=== PATIENT | female | born 1995 | race Caucasian/White ===

== ENCOUNTER 2024-03-28 11:54 | Inpatient (IN) | payer MEDICAID, SELFPAY ==
[2024-03-28] VITALS (18 sets, daily range): BP systolic 91–155; BP diastolic 56–78; PULSE 60–106; RESP 14–18; TEMP 36.4–36.6; O2SAT 96–100; BMI 24.6
--- NOTE | 2024-03-28 | DI.CT_ITS ---
Exam(s) CT CHEST PE ABD PELVIS W EXAM: CT CHEST PE ABD PELVIS W CLINICAL HISTORY: r/o PE, R/O bleed. TECHNIQUE: Imaging Protocol: Axial CT angiography was performed with multi-slice acquisition and m ulti-planar and/or 3D reconstructions. CONTRAST MATERIAL: Intravenous: Omnipaque 350 Contrast volume:100 ml Oral: None COMPARISON: No exams were available for comparison FINDINGS: CHEST: PULMONARY ARTERIES: There are no intra-arterial filling defects to suggest the presence of acute pulm onary emboli. LUNGS: There is no evidence of pulmonary infarction.No infiltrates. There are no pleural effusions.N o nodules in the lung [place]. MEDIASTINUM: There is no hilar nor mediastinal adenopathy. Visualized thyroid unremarkable. CARDIAC: Heart size is normal. There is no pericardial effusion. There is no significant shift of t he interventricular septum.Caliber of the thoracic aorta is within normal limits. No dissection. OSSEOUS: No significant osseous lesions.No fractures. ABDOMEN: There is free intraperitoneal air and there is ascites/hemoperitoneum LIVER: There are no focal hepatic lesions nor dilatation of intrahepatic ducts. No liver laceration evident. GALLBLADDER/BILIARY: No obvious gallbladder pathology. CBD is not dilated. PANCREAS: No evidence of pancreatic mass nor dilatation of the pancreatic duct. SPLEEN: Spleen is not enlarged. There are no intrasplenic lesions. No splenic laceration. Splenic a nd portal veins are patent. ADRENALS: There are no significant adrenal masses. KIDNEYS:Unremarkable. No renal lacerations. No calculi nor hydronephrosis. No solid renal masses. ABDOMINAL AORTA: Unremarkable LYMPH NODES: There is no retroperitoneal or para-aortic adenopathy. ABDOMINAL WALL/GI: No evidence of significant anterior abdominal wall hernia. No bowel obstruction. PELVIS: There is air-gas in the anterior subcutaneous tissues as well as hematoma in the anterior subcutaneou s tissues and there is also air-gas within the pelvis. There is also gas within the intramuscular ti ssues of the mid-lower abdomen. REPRODUCTIVE: Uterus is enlarged, most probably post . There is fluid and air within the endometrial cavity of the uterus. There are uterine wall defects w ith active extravasation. There appears to be discontinuity of the posterior uterine wall near the l evel the fundus also discontinuity in the anterior lower uterine segment which is presumably C-sectio n site. There is a large intrapelvic hematoma posterior to the uterus measuring approximately 20 cm craniocaudal length by 9 cm with by 5 cm. LYMPH NODES: There is no intrapelvic nor inguinal adenopathy. GI: No evidence of appendicitis.No evidence of sigmoid diverticulitis. URINARY BLADDER: Air in fluid is seen within the perivesicular space. There is a Jim catheter in t he urinary bladder. Bladder is collapsed. OSSEOUS: No significant osseous lesions. IMPRESSION: 1. Uterine rupture with large intrapelvic blood-hematoma and free intraperitoneal air. There are dis continuity in the uterus in the posterior aspect of the fundus and lower anterior segment. There is fluid and gas within the endometrial cavity 2. There is also hematoma within the anterior abdominal wall-pelvic musculature as well as abundantga s within the subcutaneous and intramuscular tissues of the mid-lower abdomen-pelvis. 3. There is ascites/hemoperitoneum 4. No acute intrathoracic findings. First read by [facility]. RADIATION DOSE DELIVERED: 298.26mGy.cm Total DLP DATA REPOSITORY: All CT scans at this facility are submitted to the National Radiology Data Registry (NRDR) Dose Index Registry (DIR) with the [employer] (A[employer]). RADIATION OPTIMIZATION: All CT scans at this facility use at least one of these dose optimization te chniques: automated exposure control; mA and/or kV adjustment per patient size (includes targeted exa ms where dose is matched to clinical indication); or iterative reconstruction.
[2024-03-28 12:45] LABS: HCT 37.3 % (36.0-46.0); MCH 29.7 pg (27.0-33.0); MCHC 32.2 % (32.0-36.0); MCV 92 fL (80-95); MPV 10.4 fL (8.0-11.0); Platelet Count 292 10^3/uL (130-400); RBC 4.04 10^6/uL (3.93-5.22); RDW 13.8 % (11.7-14.6); RDW-SD 46.7 fL; WBC 11.43 10^3/uL (4.4-10.8)
--- NOTE | 2024-03-28 13:01 | W.ANESVAS ---
Midline Placement Date Performed: 03/28/24 Procedure Time: 12:42 Requesting Provider: Selena Garg Procedure Location: Obstetrics Sedation Given (Indicate Dose Given): No Sedation given Patient Mental Status: Awake Sterility: Hand Hygiene, Surgical Cap, Surgical Mask, Sterile Gloves, Sterile Drape/Sheet and Chlorhexidine Laterality: Right Insertion Site: Basilic Midline Device: PowerGlide Pro 18G Catheter Length: 10 cm Midline Procedure Procedure: 1% Lidocaine to skin and subcutaneous tissue with 25g needle and Vessel accessed with needle Dressing: Tegaderm Applied Blood Return: Present Flushes: Easily Ultrasound: Sterile probe cover and gel used Ultrasound Image Saved?: Yes Number of Attempts (See previous attempts in note section): 1 Procedure Tolerated: No Complications Procedure Outcome: Successful Performed By: Poncho Sanchez
--- NOTE | 2024-03-28 13:02 | ANES.PREOP_ITS ---
General Info Date of Service Date Performed: 03/28/24 Height: 5 ft 5 in Weight: 67.132 kg Body Mass Index (BMI): 24.6 Surgical Procedure: Operation Date: 03/28/24 13:10 Proposed Procedure Side Surgeon p Section Selena Garg MD Meds Allergies and Home Medications Current Visit Medications: Current Medications Generic Name Dose Route Start Last Admin Trade Name Freq PRN Reason Stop Dose Admin Citric Acid/Sodium Citrate 30 ml 03/28/24 13:00 Sodium Citrate 30 Ml Cup PO PREOP REKHA Cefazolin Sodium/Dextrose 2 gm in 50 mls @ 100 mls/hr 03/28/24 13:00 Ancef Duplex IVPB PREOP REKHA Azithromycin 500 mg/ Sodium 250 mls @ 250 mls/hr 03/28/24 13:00 Chloride IVPB PREOP REKHA Ringer's Solution 1,000 mls @ 200 mls/hr 03/28/24 13:00 IV INFUSION REKHA IV Miscellaneous Supplies 1 each 03/28/24 12:15 Iv Access IV DIRECTED REKHA IV Miscellaneous Supplies 1 each 03/28/24 13:00 Iv Access IV DIRECTED REKHA Sodium Chloride 0 ml 03/28/24 12:02 Normal Saline Flush 10 Ml Syr IVP PRN PRN Sodium Chloride 0 ml 03/28/24 20:00 Normal Saline Flush 10 Ml Syr IVP BID REKHA Sodium Chloride 0 ml 03/28/24 12:02 Normal Saline 10 Ml Vial IJ DIRECTED PRN Sodium Chloride 0 ml 03/28/24 12:56 Normal Saline Flush 10 Ml Syr IVP PRN PRN Sodium Chloride 0 ml 03/28/24 20:00 Normal Saline Flush 10 Ml Syr IVP BID REKHA Sodium Chloride 0 ml 03/28/24 12:56 Normal Saline 10 Ml Vial IJ DIRECTED PRN PFSH Prental History History 2 2 Para 0 Hx # Term Pregnancies Multiple births Hx # Pregnancies Ectopic pregnancies AB induced Hx Number of Living Children AB spontaneous Vital Signs and Lab Results Vital Signs Most Recent Vital Signs in EMR: Most Recent Vital Signs Temp Pulse Resp BP Pulse Ox 36.6 C 68 18 155/70 H 96 03/28/24 12:34 03/28/24 12:34 03/28/24 12:34 03/28/24 12:34 03/28/24 12:34 Lab Results 03/28/24 12:25 03/28/24 12:25 Blood Type / Crossmatch: 2 Antibody Screen Pending 03/28/24 Complete Blood Count: 2 White Blood Count 11.43 10^3/uL (4.4-10.8) H 03/28/24 12:25 Red Blood Count 4.04 10^6/uL (3.93-5.22) 03/28/24 12:25 Hemoglobin 12.0 g/dL (11.2-15.7) 03/28/24 12:25 Hematocrit 37.3 % (36.0-46.0) 03/28/24 12:25 Platelet Count 292 10^3/uL (130-400) 03/28/24 12:25 Complete Metabolic Panel: 2 Sodium Pending 03/28/24 12:25 Potassium Pending 03/28/24 12:25 Chloride Pending 03/28/24 12:25 Carbon Dioxide Pending 03/28/24 12:25 BUN Pending 03/28/24 12:25 Creatinine Pending 03/28/24 12:25 Est GFR (CKD-EPI 2020) Pending 03/28/24 12:25 Calcium Pending 03/28/24 12:25 Albumin Pending 03/28/24 12:25 Glucose Pending 03/28/24 12:25 Liver Function Panel: 2 Alanine Aminotransferase (ALT/SGPT) Pending 03/28/24 12: 25 Aspartate Amino Transf (AST/SGOT) Pending 03/28/24 12:25 Coagulation Panel: 2 No Data to Display Cardiac Panel: 2 No Data to Display Arterial Blood Gas: 2 No Data to Display Venous Blood Gas: 2 No Data to Display Pancreas Panel: 2 No Data to Display Thyroid Panel: 2 No Data to Display Infectious Disease: 2 HIV (1&2) Ag and Ab, 4th Generation Pending 03/28/24 23: 59 Hepatitis B Surface Antigen Pending 03/28/24 12:25 Hepatitis C Antibody Pending 03/28/24 23:59 Blood Cultures: 2 No Data to Display Toxicology Panel: 2 No Data to Display Panel: 2 No Data to Display Anesthesia Assessment and Plan Anesthesia History Personal History: Unknown Anesthesia History Family History: Family History Unknown Exercise Tolerance Exercise Tolerance: Metabolic Equivalents>4 Pertinent Negatives Pertinent Negatives: No Symptoms of GERD Cardiac & Pulmonary Exam Cardiac Exam: Normal S1/S2 Heart Sounds Pulmonary Exam: Clear Bilateral Breath Sounds Implantable Cardiac Device Does patient have a Pacemaker or an ICD?: No Airway Exam Known Difficult Airway: No Mallampati Class: 1 Mouth Opening: Normal (> 3cm) Thyromental Distance: Greater than 3 cm Neck Range of Motion: Full ROM Neck Circumference: Normal Teeth Condition: Generalized Poor Dentition ASA Classification ASA Score: ASA 3 Emergency Case?: Yes NPO Status NPO Status: Unable to Assess Status Status: Confirmed (36-37 weeks estimated) Anesthesia Plan Resuscitation Status: Full Code Anesthesia Technique: Spinal Anesthesia Airway Planned: Natural Airway Monitors Used: Standard Monitors
[2024-03-28] MEDS: AZITHROMYCIN 500 MG in Normal Saline 250 ML 250 MG IVPB (13:05)
[2024-03-28 13:14] LABS: ROM Plus Negative
[2024-03-28] MEDS: Lactated Ringers 1,000 ML 200 ML IV (13:15)
[2024-03-28] MEDS: ceFAZolin 2 GM/50 ML BAG IVPB (13:30)
--- NOTE | 2024-03-28 13:45 | PLAC_PTH ---
PATIENT: Claudette Gamboa LOC: OBS U#:[id number] AGE/SX: 28/F ROOM: OBS.304 RE03/28/[address]: Selena Garg MD : 1995 BED: A DIS: 04/01/2024 SPEC #: [id number] RECD: 03/28/24 18:35 STATUS: JACQUI REQ #: [id number] DAISHA: 03/28/24 13:[address]: Selena Garg DEPT: Surgical Specimen RECD BY: Emily Solano ENTERED: 03/28/24 18:36 SP TYPE: PLAC OTHR DR: Unknown,Unknown Tissues: 1 - PLACENTA (3RD TRIMESTER) Procedures: GROSS AND MICRO LEVEL 5 Comments: [id number]
[2024-03-28 13:48] LABS: ALT 30 U/L (14-59); AST 36 U/L (15-37); Albumin 2.5 g/dL (3.4-5.0); Alkaline Phosphatase 267 U/L (46-116); Anion Gap 11.7 mmol/L (3-11); BUN 10 mg/dL (7-18); Bilirubin, Total 0.53 mg/dL (0.2-1.0); CO2 21.3 mmol/L (21.0-32.0); CREATININE 0.6 mg/dL (0.55-1.02); Calcium 9.3 mg/dL (8.5-10.1); Chloride 103 mmol/L (98-107); Estimated GFR 126.09 (mL/min/1.73m2); Glucose 83 mg/dL (74-106); Potassium 3.7 mmol/L (3.5-5.1); Sodium 136 mmol/L (136-145); Total Protein 7.2 g/dL (6.4-8.2)
--- NOTE | 2024-03-28 13:58 | W.ANESVAS ---
Midline Placement Date Performed: 03/28/24 Procedure Time: 13:30 Requesting Provider: Poncho Sanchez Procedure Location: Operating Room Sedation Given (Indicate Dose Given): No Sedation given Patient Mental Status: Awake Sterility: Hand Hygiene, Surgical Cap, Surgical Mask, Sterile Gloves and Chlorhexidine Laterality: Left Insertion Site: Brachial Midline Device: PowerGlide Pro 18G Catheter Length: 10 cm Midline Procedure Procedure: Catheter placed without resistance Dressing: Tegaderm Applied and Statlock Applied Blood Return: Present Flushes: Easily Ultrasound: Sterile probe cover and gel used (urgent placement. ) Ultrasound Image Saved?: No Number of Attempts (See previous attempts in note section): 1 Procedure Tolerated: No Complications Procedure Outcome: Successful Procedure Comment:: On placement of the spinal for section, pt complaining of right arm midline site discomfort. Site inspected, noted to be swollen, no blood return as previous. line considered to be infiltrated/leaking, new line placed in the left arm. Performed By: Poncho Sanchez
[2024-03-28] MEDS: Bupivacaine 0.25% Pres-Free 30 ML VIAL (14:17)
--- NOTE | 2024-03-28 14:34 | ROE_ITS ---
Date of service: 03/28/24 Time of Service: 13:30 Operative Note Operative Note PRE-OP DIAGNOSIS: 37wk IUP, Breech presentation POST-OP DIAGNOSIS: same (thick meconium) SURGEON: Selena Garg ASSISTING SURGEON: Teetee Antunez Refer to Anesthesia Record ESTIMATED BLOOD LOSS: 600 COMPLICATIONS: None Patient was transported to: floor Patient's condition: stable Indications: 37.2wks IUP, breech presentation, active labor Minimal care, substance abuse Findings: Male infant, apgars 8/9 Normal appearing uterus, ovaries and tubes. Procedure Description: After informed consent was signed the patient was taken to the operating room. She was given spinal anesthesia, SCDs were placed on her legs and a gastelum catheter was introduced into her bladder. The heart rate was checked and was in the 90s. She underwent abdomina prep and was draped in the dorsal supine position with a leftward tilt. The patient was tested and spinal anesthesia was found to be adequate. A time out was performed. The skin was injected with bupivocaine along the length of the planned incision. A skin incision was made with the scalpel and carried down to the underlying layer of fascia with blunt dissection. The fascia was incised on either side of the midline and the fascial incision extended laterally with a combination of sharp and blunt dissection. The inferior edge of the fascia was grasped with ridge clamps and tented up and dissected down with a combination of sharp and blunt dissection. Then the superior edge of the fascial incision was grasped with ridge clamps and tented up and dissected down with a combination of sharp and blunt dissection. The rectus muscles were in the midline and the peritoneum was entered bluntly. The peritoneal incision was extended laterally with blunt dissection. The bladder blade was inserted. A transverse incision was made in the lower uterine segment with the scalpel. The incision was extended superiorly and inferiorly with blunt pressure. Think meconium was noted. The breech was brought out of the pelvis and delivered through the incision followed by the body and legs. The arms were internally rotated and delivered followed by the head in a flexed position. The cord was milked toward the baby and clamped x2 and cut. The baby was handed to the performance consultant. Cord blood was collected. A segment of cord was set aside for cord gasses. The placenta delivered with fundal massage and gentle cord traction and appeared to be intact. The uterus was exteriorized and cleared of clots and debris. The uterine incision had bilateral extensions down toward the cervix that were hemostatic. It was closed with 0-vicryl in a running locked fashion with a second layer of suture imbricating the first. Good hemostasis was noted. The uterus was placed back into the abdominal cavity. Clots were cleared from the peritoneal cavity with lap sponges. The incision was inspected once again and good hemostasis was noted. There was good hemostasis of the rectus muscles. The fascia was closed with 0- vicryl in a running unlocked fashion. The subcuticular layer was irrigated. The skin was closed with 4-0 vicryl in a running subcuticular fashion. The incision was cleaned. Mastisol and steristrips were placed. A Mepilex dressing was placed. The fundus was palpated to be firm. The patient was moved to the stretcher and taken to the recovery room in stable condition.
--- NOTE | 2024-03-28 14:55 | W.ANESPOSTOP ---
Postoperative Evaluation Date, Time and Location Date Performed: 03/28/24 Time Performed: 14:55 Patient Location: Day Surgery Unit Vital Signs Most Recent Imported Vital Signs: Most Recent Vital Signs Temp Pulse Resp BP Pulse Ox 36.6 C 68 18 155/70 H 96 03/28/24 12:34 03/28/24 12:34 03/28/24 12:34 03/28/24 12:34 03/28/24 12:34 Pain Score Most Recent Pain Score: Most Recent Pain Score Pain Level 10 03/28/24 12:34 Assessment Mental Status: Awake (Alert & Oriented to Patient Baseline) Airway and Respiratory Function: Patent airway with normal (patient baseline) respiratory exam Cardiovascular Function: Hemodynamically Stable Hydration Status: Adequately Hydrated Nausea & Vomiting: No Nausea or Vomiting Pain: Pain is tolerable per patient Peripheral Nerve Block: Patient did not receive a nerve block
[2024-03-28] MEDS: Oxytocin/Normal Saline 30 UNIT/500 ML BAG 95 UNITS IV (15:00)
[2024-03-28] MEDS: oxyCODONE 5 mg/Acetaminophen 325 mg TAB PO ×2 (16:45→18:20)
[2024-03-28] MEDS: Lactated Ringers 1,000 ML 120 ML IV (17:40)
--- NOTE | 2024-03-28 18:41 | W.PM.OBHPL1 ---
Date of service: 03/28/24 Time of Service: 12:30 Assessment and Plan Assessment and plan (1) Breech presentation: Status: Acute Assessment and plan: Pt is a P0 @37.2wks by 3T sono in active labor with breech presentation. She consented to proceed with a CS. The appropriate teams were alerted. She will received spinal analgesia and then repeat vaginal exam to check for potential imminent breech delivery. OB-HPI Labor/Delivery History of Present Illness Reason for Visit: Labor Chief Complaint: Uterine Contractions. Comments: Pt arrived to the Center without any prior care here and very minimal care at all. She had been seen for a visit at [facility] several weeks ago with a sono that measured 34.5wks making her 37.2wks based on that. 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 Pt denies other health concerns. She was in significant pain and kit every few minutes on arrival. No bleeding or loss of fluid. PFSH All Active Problems (Updated 03/28/24 @ 19:12 by Selena Garg MD) Breech presentation (Acute) Problem related to housing and economic circumstances (Acute) Drug use complicating puerperium (Acute) Other specified counseling (Acute) Social History Smoking risk assessment performed?: No History History 2 Para 0 Hx # Term Pregnancies Multiple births Hx # Pregnancies Ectopic pregnancies AB induced Hx Number of Living Children AB spontaneous Exam Physical Exam Vital signs: Temp Pulse Resp BP Pulse Ox 97.5 F L 63 14 104/68 100 03/28/24 17:00 03/28/24 17:00 03/28/24 17:00 03/28/24 17:00 03/28/24 17:00 Vital Signs Reviewed: Yes Detailed Labor and Delivery Exam [place] Score: Cervical Points Exam 0 1 2 3 Dilation Closed 1-2cm 3-4 cm 5-6cm Effacement 0-30% 40-50% 60-70% 80% Consistency Firm Medium Soft Station -3 -2 -1,0 +1,+2 Position Posterior Mid Anterior Comments: Difficult to get an accurate cervical exam due to pt's intolerance of the exam. The presenting part was felt to be low in the pelvis at +1 station. Fetus A Heart Rate Baseline: 140 Monitor Accelerations: 15 X 15 Monitor Decelerations: None Variability: Moderate (6-25 BPM) Date of Membrane Rupture: 03/28/24 Time of Membrane Rupture: 13:40 Results Results Group Beta Strep: Done-Result Unknown Abnormal Lab Findings: Abnormal Labs 03/28/24 12:25 WBC 11.43 H Anion Gap 11.7 H Alkaline Phosphatase 267 H Albumin 2.5 L Risk Assessment Risks Reviewed Risks Reviewed Upon Admission: Yes (Minimal care, substance abuse) WW Pocus Exam Exam testing Date/Time of Exam: Date of exam: 03/28/2024 Time of exam: 7:11 pm position Gestational age (weeks): 37 Presentation: Rafa Breech Coding for Transabdominal exam: Complete exam
[2024-03-28 18:56] LABS: Bilirubin Small (Negative); Blood Small (Negative); Clarity Clear (Clear); Glucose Negative (Negative); Ketones >=160 mg/dL (Negative); Leukocyte Esterase Negative (Negative); Nitrite Positive (Negative); Specific Gravity >= 1.030 (1.005-1.025)
[2024-03-28 19:17] LABS: Bacteria Few HPF (Negative); C & S Indicated? No; Casts 0-2 Hyaline LPF (Negative); Crystals Negative HPF (Negative); Epithelial Cells Few HPF (Negative); Mucus Negative (Negative); WBC 0-2 HPF (0-5)
[2024-03-28 19:18] LABS: *AMPHETAMINES SCREEN URINE Positive (Negative); *BARBITURATES SCREEN URINE Negative (Negative); *BENZODIAZEPINES SCREEN URINE Negative (Negative); Cannabinoids THC Negative (Negative); Cocaine Screen,Urine Positive (Negative); METHADONE URINE SCREEN Positive (Negative); OPIATES URINE SCREEN Negative (Negative)
[2024-03-28 19:22] LABS: Tricyclic Antidepressants Negative (Negative)
[2024-03-28] MEDS: Ketorolac 30 MG/ML VIAL IVP (21:38)
[2024-03-28 23:02] LABS: Abs Immature Grans 0.26 10^3/uL (0.0-0.06); Absolute Lymphocyte Count 3.38 10^3/uL (1.2-3.4); Basophils % 0.2 %; HCT 22.9 % (36.0-46.0); HGB 7.5 g/dL (11.2-15.7); Immature Grans % 0.8 %; Lymphocytes % 10.6 %; MCH 29.8 pg (27.0-33.0); MCHC 32.8 % (32.0-36.0); MCV 91 fL (80-95); MPV 10.5 fL (8.0-11.0); Monocytes % 5.3 %; Neutrophils % 83.1 %; Platelet Count 408 10^3/uL (130-400); RBC 2.52 10^6/uL (3.93-5.22); RDW 14.1 % (11.7-14.6); RDW-SD 46.6 fL
[2024-03-28 23:16] LABS: ALT 23 U/L (14-59); AST 23 U/L (15-37); Absolute Basophil Count 0.06 10^3/uL (0.0-0.2); Absolute Monocyte Count 1.69 10^3/uL (0.1-0.8); Albumin 1.7 g/dL (3.4-5.0); Alkaline Phosphatase 182 U/L (46-116); Anion Gap 11.8 mmol/L (3-11); BUN 11 mg/dL (7-18); Bilirubin, Total 0.42 mg/dL (0.2-1.0); CO2 20.2 mmol/L (21.0-32.0); CREATININE 0.8 mg/dL (0.55-1.02); Calcium 8.2 mg/dL (8.5-10.1); Chloride 105 mmol/L (98-107); Glucose 157 mg/dL (74-106); Sodium 137 mmol/L (136-145); Total Protein 5.3 g/dL (6.4-8.2)
[2024-03-28 23:18] LABS: WBC 31.89 10^3/uL (4.4-10.8)
[2024-03-28 23:20] LABS: Bilirubin Small (Negative); Blood Large (Negative); Clarity Turbid (Clear); Glucose 100 mg/dL (Negative); Ketones 15 mg/dL (Negative); Leukocyte Esterase Negative (Negative); Nitrite Positive (Negative); Specific Gravity >= 1.030 (1.005-1.025); Urobilinogen 0.2 mg/dL (Up to 0.2); pH 5.5 (5-8)
[2024-03-28 23:26] LABS: Epithelial Cells Few HPF (Negative); RBC >50 HPF (0-2)
[2024-03-28 23:27] LABS: Bacteria Few HPF (Negative); C & S Indicated? Yes; Casts Negative LPF (Negative); Crystals Negative HPF (Negative); Mucus Trace (Negative)
[2024-03-28 23:35] LABS: Diff Comment Agrees w/ Instrument; Hypochromasia 2+
--- NOTE | 2024-03-28 23:49 | PGE_ITS ---
Date of Service Date of service: 03/29/24 Time of Service: 00:22 Assessment and Plan Assessment and plan (1) Hemoperitoneum: Status: Acute Assessment and plan: Pt aware of CT findings and need to return to the OR. Anesthesia, OR team and Dr. Arreola notified. Pt being T&C for 2U. Subjective Subjective Interval history since last seen: Pt evaluated due to concerns for pain in her ribs with inspiration. She has persistently complained of belly pain when asked though also nods off intermittently as well and does not ring out complaining of pain. She has not been coughing though says she has the feeling of something caught in her throat. She reports some nausea c/w withdrawal. She has kept down some liquid but not tried to eat any food. She feels hot and cold flashes c/w withdrawal as well. She says the breathing concerns are different then withdrawal. Her baby is being transferred to [facility] due to withdrawal sxms. She was not interested in seeing him again before he left. Exam Narrative Exam Narrative: Pt is at times nodding off and other times appears very uncomfortable. Chest Other: Mild tenderness to touch over her lower ribs and sides. Resp Other: Only able to auscultate through the chest and she wouldn't roll over to allow access to her back. Lungs seemed clear overall. Cardio Rate: regular rate Rhythm: regular rhythm GI Other: Pt with disproportionate reaction to even light touch anywhere on her abdomen. Just prior to my exam the nurse had palpated the fundus and it was firm and below the umbilicus. The dressing had one small area of dark blood on the right side. Other: Minimal lochia. Extrem Other: No edema or calf tenderness. Objective Last Vital Signs Temp 97.7 F 03/28/24 22:01 Pulse 96 H 03/28/24 23:34 Resp 14 03/28/24 18:30 BP 98/68 L 03/28/24 23:34 Pulse Ox 100 03/28/24 18:30 Laboratory Results - last 24 hr 03/28/24 03/28/24 03/28/24 12:15 12:25 13:30 WBC 11.43 H RBC 4.04 Hgb 12.0 Hct 37.3 MCV 92 MCH 29.7 MCHC 32.2 RDW 13.8 Plt Count 292 MPV 10.4 Immature Gran % Neutrophils % Lymphocytes % Monocytes % Eosinophils % Basophils % Nucleated RBC % Absolute Neutrophils Absolute Lymphocytes Absolute Monocytes Absolute Eosinophils Absolute Basophils RBC Morphology Hypochromasia Sodium 136 Potassium 3.7 Chloride 103 Carbon Dioxide 21.3 Anion Gap 11.7 H BUN 10 Creatinine 0.6 Est GFR (CKD-EPI 2020) 126.09 Glucose 83 Calcium 9.3 Total Bilirubin 0.53 AST 36 ALT 30 Alkaline Phosphatase 267 H Total Protein 7.2 Albumin 2.5 L Urine Color Yellow Urine Clarity Clear Urine pH 6.0 Ur Specific [place] >= 1.030 H Urine Protein 30 H Urine Ketones >=160 H Urine Blood Small H Urine Nitrite Positive H Urine Bilirubin Small H Urine Urobilinogen 1.0 H Ur Leukocyte Esterase Negative Urine RBC 3-5 H Urine WBC 0-2 Ur Epithelial Cells Few Urine Crystals Negative Urine Bacteria Few Urine Casts 0-2 Hyaline Urine Mucus Negative Ur Culture Indicated? No Urine Glucose Negative Membranes Rupture Negative Urine Opiates Screen Negative Urine Methadone Screen Positive A Ur Barbiturates Screen Negative Ur Tricyclics Screen Negative Ur Amphetamines Screen Positive A U Benzodiazepines Scrn Negative Urine Cocaine Screen Positive A Ur THC Screen Negative ABO/Rh B Negative Antibody Screen NEGATIVE 03/28/24 22:45 WBC 31.89 H* RBC 2.52 L Hgb 7.5 L D Hct 22.9 L MCV 91 MCH 29.8 MCHC 32.8 RDW 14.1 Plt Count 408 H MPV 10.5 Immature Gran % 0.8 Neutrophils % 83.1 Lymphocytes % 10.6 Monocytes % 5.3 Eosinophils % 0.0 Basophils % 0.2 Nucleated RBC % 0.0 Absolute Neutrophils 26.50 H Absolute Lymphocytes 3.38 Absolute Monocytes 1.69 H Absolute Eosinophils 0.00 Absolute Basophils 0.06 RBC Morphology See Below Hypochromasia 2+ Sodium 137 Potassium 4.0 Chloride 105 Carbon Dioxide 20.2 L Anion Gap 11.8 H BUN 11 Creatinine 0.8 Est GFR (CKD-EPI 2020) 103.50 Glucose 157 H Calcium 8.2 L Total Bilirubin 0.42 AST 23 ALT 23 Alkaline Phosphatase 182 H Total Protein 5.3 L Albumin 1.7 L Urine Color Brown Urine Clarity Turbid Urine pH 5.5 Ur Specific [place] >= 1.030 H Urine Protein 100 H Urine Ketones 15 H Urine Blood Large H Urine Nitrite Positive H Urine Bilirubin Small H Urine Urobilinogen 0.2 Ur Leukocyte Esterase Negative Urine RBC >50 H Urine WBC 10-20 H Ur Epithelial Cells Few Urine Crystals Negative Urine Bacteria Few Urine Casts Negative Urine Mucus Trace Ur Culture Indicated? Yes Urine Glucose 100 H Membranes Rupture Urine Opiates Screen Urine Methadone Screen Ur Barbiturates Screen Ur Tricyclics Screen Ur Amphetamines Screen U Benzodiazepines Scrn Urine Cocaine Screen Ur THC Screen ABO/Rh Antibody Screen Objective Narrative Objective Narrative: Vrads radiologist called with CT scan results and reported blood in the abdominal cavity as well as a posterior uterine defect towards the fundus that appears to be actively bleeding. Time Spent with Patient Time Spent with Patient: 35-49 minutes Time was spent: preparing to see the patient(eg.review tests), obtaining and/or reviewing separately otained hiistory, ordering medications,tests, procedures, referring, communicating with other health child care provider, indepentently interpreting results, counseling the patient and care coordination
[2024-03-29] VITALS (43 sets, daily range): BP systolic 97–133; BP diastolic 52–112; PULSE 50–131; RESP 14–20; TEMP 35.5–37.2; O2SAT 95–100; BMI 24.6
[2024-03-29] MEDS: Omnipaque 350 MG/ML 100 ML BTL IJ (00:11)
[2024-03-29] MEDS: Normal Saline - Diluent 50 ML VIAL IJ (00:13)
[2024-03-29 00:59] LABS: Abs Immature Grans 0.27 10^3/uL (0.0-0.06); MCHC 32.7 % (32.0-36.0); MCV 92 fL (80-95); MPV 10.5 fL (8.0-11.0); Platelet Count 321 10^3/uL (130-400); RBC 2.13 10^6/uL (3.93-5.22); RDW 13.9 % (11.7-14.6); RDW-SD 46.4 fL
--- NOTE | 2024-03-29 01:07 | DI.VRAD_ITS ---
PROCEDURE INFORMATION: Exam: CTA Chest With Contrast CTA Abdomen With Contrast Exam date and time: 03/28/2024 11:47 PM Age: 28 years old Clinical indication: Abdominal pain; Generalized; Chest wall pain; Patient HX: Chest and back pain, R/O pe. R/O bleed; Additional info: Child 03/28/24 TECHNIQUE: Imaging protocol: Computed tomographic angiography of the chest with contrast. Exam focused on the arteries. Computed tomographic angiography of the abdomen with contrast. Exam focused on the arteries. 3D rendering (Not supervised by radiologist): MIP and/or 3D reconstructed images were created by the technologist. Total images: 3804 Radiation optimization: All CT scans at this facility use at least one of these dose optimization techniques: automated exposure control; mA and/or kV adjustment per patient size (includes targeted exams where dose is matched to clinical indication); or iterative reconstruction. Contrast material: OMNIPAQUE 350; Contrast volume: 85 ml; Contrast route: INTRAVENOUS (IV); COMPARISON: No relevant prior studies available. FINDINGS: VASCULATURE: Pulmonary arteries: No filling defect. Aorta: No aortic aneurysm. No aortic dissection. Celiac trunk and mesenteric arteries: No occlusion or significant stenosis. Renal arteries: No occlusion or significant stenosis. CHEST: Lungs: Unremarkable. No consolidation. No masses. Pleural spaces: Unremarkable. No pneumothorax. No pleural effusion. Heart: Unremarkable. No cardiomegaly. No pericardial effusion. ABDOMEN AND PELVIS: Liver: No mass. Gallbladder and biliary ducts: Unremarkable. No calcified stones. No ductal dilation. Pancreas: Unremarkable. No mass. No ductal dilation. Spleen: Unremarkable. No splenomegaly. Adrenal glands: Unremarkable. No mass. Kidneys: Unremarkable kidneys. No solid mass. No hydronephrosis. Stomach and bowel: Unremarkable. No obstruction. No mucosal thickening. Intraperitoneal space: Moderate free intraperitoneal air. Large volume abdominopelvic ascites. Significant heterogeneously increased in density pelvic and lower abdominal fluid. Retroperitoneal space: Small amount of free retroperitoneal air. Reproductive: Discontinuity posterior uterine wall near the fundus associated with active extravasation. Fluid and air within the endometrial canal. Air and fluid outlined discontinuity anterior lower uterine segment wall presumably in the region of the incision. Extraperitoneal space: Air and fluid collecting within the prevesical space. Lymph nodes: Unremarkable. No enlarged lymph nodes. Bones/joints: Unremarkable. No acute fracture. Soft tissues: Hematoma lower abdominal wall. Soft tissue gas within subcutaneous and intramuscular tissues of the mid to lower abdomen. IMPRESSION: 1. Uterine wall defects with active extravasation and secondary ascites/hemoperitoneum. 2. THIS REPORT CONTAINS FINDINGS THAT MAY BE CRITICAL TO PATIENT CARE. The findings were verbally communicated via telephone conference with Seelna Garg at 1:03 AM EDT on 03/29/2024. The findings were acknowledged and understood. Dictated and Authenticated by: Lee Cho MD. Ordering:GONZALES Walters MD
[2024-03-29] MEDS: ceFAZolin 2 GM/50 ML BAG 100 GM (01:12)
[2024-03-29 01:16] LABS: HCT 19.6 % (36.0-46.0); HGB 6.4 g/dL (11.2-15.7); WBC 26.15 10^3/uL (4.4-10.8)
[2024-03-29 01:20] LABS: Absolute Lymphocyte Count 2.62 10^3/uL (1.2-3.4); Absolute Monocyte Count 1.57 10^3/uL (0.1-0.8); Absolute Neutrophil Count 21.97 10^3/uL (1.2-6.7)
[2024-03-29 01:21] LABS: Diff Comment Manual Differential; Hypochromasia 2+
[2024-03-29] MEDS: ceFAZolin 2 GM/50 ML BAG IVPB (01:45)
--- NOTE | 2024-03-29 02:53 | ANES.PREOP_ITS ---
General Info Date of Service Date Performed: 03/29/24 Height: 5 ft 5 in Weight: 67.132 kg Body Mass Index (BMI): 24.6 Surgical Procedure: Operation Date: 03/28/24 13:10 Proposed Procedure Side Surgeon p Section Selena Garg MD Operation Date: 03/29/24 01:45 Proposed Procedure Side Surgeon p Exploratory Laparotomy Selena Garg MD Actual Procedure Side Surgeon p Exploratory Laparotomy Not Applicable Selena Garg MD Pre-Op Diagnosis Post-Op Diagnosis Bleeding S/P Bleeding S/P Meds Allergies and Home Medications Current Visit Medications: Current Medications Generic Name Dose Route Start Last Admin Trade Name Freq PRN Reason Stop Dose Admin Acetaminophen 650 mg 03/28/24 14:33 Acetaminophen 325 Mg Tab PO Q4H PRN PRN Citric Acid/Sodium Citrate 30 ml 03/28/24 13:00 Sodium Citrate 30 Ml Cup PO PREOP REKHA Docusate Sodium 100 mg 03/28/24 14:33 Docusate Sodium 100 Mg Cap PO BID PRN PRN Hydromorphone HCl 0.5 mg 03/28/24 18:51 Hydromorphone 2 Mg/Ml Syr IVP Q4H PRN PRN Cefazolin Sodium/Dextrose 2 gm in 50 mls @ 100 mls/hr 03/28/24 13:00 03/29/24 02:15 Ancef Duplex IVPB Infused PREOP REKHA Infusion Azithromycin 500 mg/ Sodium 250 mls @ 250 mls/hr 03/28/24 13:00 03/28/24 13:25 Chloride IVPB Infused PREOP REKHA Infusion Ringer's Solution 1,000 mls @ 200 mls/hr 03/28/24 13:00 03/28/24 22:03 IV Infused INFUSION REKHA Infusion Oxytocin/Sodium Chloride 30 unit in 500 mls @ 95 mls/hr 03/28/24 14:45 03/28/24 21:44 Pitocin/Normal Saline IV Infused INFUSION REKHA Titration Protocol Ringer's Solution 1,000 mls @ 120 mls/hr 03/28/24 14:45 03/28/24 21:43 IV Infused INFUSION REHKA Infusion IV Miscellaneous Supplies 1 each 03/28/24 12:15 Iv Access IV DIRECTED REKHA Ibuprofen 600 mg 03/28/24 19:16 Ibuprofen 600 Mg Tab PO Q6H PRN PRN Iohexol 100 ml 03/29/24 00:15 03/29/24 00:11 Omnipaque 350 Mg/Ml 100 Ml Btl IJ 04/28/24 23:59 85 ml DIRECTED REKHA Administration Ketorolac Tromethamine 30 mg 03/28/24 14:45 03/28/24 21:38 Ketorolac 30 Mg/Ml Vial IVP 03/29/24 08:46 30 mg Q6H REKHA Administration Metoclopramide HCl 10 mg 03/28/24 14:33 Metoclopramide 10 Mg/2 Ml Vial IVP Q6H PRN PRN Oxycodone/Acetaminophen 0 tab 03/28/24 14:33 03/28/24 18:20 Oxycodone 5 Mg/Acetaminophen 325 Mg Tab PO 1 tab Q4H PRN PRN Administration Rho Immune Globulin 1,500 unit 03/28/24 14:45 Rho(D) Immune Globulin 1,500 Unit Syringe IM DIRECTED REKHA Sodium Chloride 0 ml 03/28/24 12:02 Normal Saline Flush 10 Ml Syr IVP PRN PRN Sodium Chloride 0 ml 03/28/24 20:00 03/28/24 21:44 Normal Saline Flush 10 Ml Syr IVP Not Given BID REKHA Sodium Chloride 0 ml 03/28/24 12:02 Normal Saline 10 Ml Vial IJ DIRECTED PRN Sodium Chloride 50 ml 03/29/24 00:15 03/29/24 00:13 Normal Saline - Diluent 50 Ml Vial IJ 50 ml .FOR DI USE REKHA Administration PFSH Active Problems Active Problems: Problem Status Onset Code Hemoperitoneum Acute K66.1 Breech presentation Acute O32.1XX0 Problem related to housing and economic circumstances Acute Z59.9 Drug use complicating puerperium Acute O99.325 Other specified counseling Acute Z71.89 Prental History History 2 2 Para 0 Hx # Term Pregnancies Multiple births Hx # Pregnancies Ectopic pregnancies AB induced Hx Number of Living Children AB spontaneous Vital Signs and Lab Results Vital Signs Most Recent Vital Signs in EMR: Most Recent Vital Signs Temp Pulse Resp BP Pulse Ox 36.5 C 107 H 14 105/82 99 03/28/24 22:01 03/29/24 01:30 03/28/24 18:30 03/29/24 01:30 03/29/24 01:24 Lab Results 03/29/24 00:50 03/28/24 22:45 Blood Type / Crossmatch: 2 Antibody Screen NEGATIVE 03/28/24 Crossmatch See Detail 03/28/24 Complete Blood Count: 2 White Blood Count 26.15 10^3/uL (4.4-10.8) H* 03/29/24 00:50 Red Blood Count 2.13 10^6/uL (3.93-5.22) L 03/29/24 00:50 Hemoglobin 6.4 g/dL (11.2-15.7) L* 03/29/24 00:50 Hematocrit 19.6 % (36.0-46.0) L* 03/29/24 00:50 Platelet Count 321 10^3/uL (130-400) 03/29/24 00:50 Complete Metabolic Panel: 2 Sodium 137 mmol/L (136-145) 03/28/24 22:45 Potassium 4.0 mmol/L (3.5-5.1) 03/28/24 22:45 Chloride 105 mmol/L (98-107) 03/28/24 22:45 Carbon Dioxide 20.2 mmol/L (21.0-32.0) L 03/28/24 22:45 BUN 11 mg/dL (7-18) 03/28/24 22:45 Creatinine 0.8 mg/dL (0.55-1.02) 03/28/24 22:45 Est GFR (CKD-EPI 2020) 103.50 (mL/min/1.73m2) 03/28/24 22:45 Calcium 8.2 mg/dL (8.5-10.1) L 03/28/24 22:45 Albumin 1.7 g/dL (3.4-5.0) L 03/28/24 22:45 Glucose 157 mg/dL (74-106) H 03/28/24 22:45 Liver Function Panel: 2 Alanine Aminotransferase (ALT/SGPT) 23 U/L (14-59) 03/28/24 22: 45 Aspartate Amino Transf (AST/SGOT) 23 U/L (15-37) 03/28/24 22:45 Coagulation Panel: 2 No Data to Display Cardiac Panel: 2 No Data to Display Arterial Blood Gas: 2 No Data to Display Venous Blood Gas: 2 No Data to Display Pancreas Panel: 2 No Data to Display Thyroid Panel: 2 No Data to Display Infectious Disease: 2 HIV (1&2) Ag and Ab, 4th Generation Pending 03/28/24 12: 55 Hepatitis B Surface Antigen Pending 03/28/24 12:25 Hepatitis C Antibody Pending 03/28/24 12:55 Blood Cultures: 2 No Data to Display Toxicology Panel: 2 Urine Amphetamines Screen Positive (Negative) A 03/28/24 13:30 Urine Benzodiazepines Screen Negative (Negative) 03/28/24 13:3 0 Urine Barbiturates Screen Negative (Negative) 03/28/24 13:30 Urine Cocaine Screen Positive (Negative) A 03/28/24 13:30 Urine Methadone Screen Positive (Negative) A 03/28/24 13:30 Urine Opiates Screen Negative (Negative) 03/28/24 13:30 Ur Tricyclic Antidepressants Screen Negative (Negative) 13:30 Ur Tetrahydrocannabinol (THC) Scrn Negative (Negative) 4 13:30 Panel: 2 No Data to Display Anesthesia Assessment and Plan Anesthesia History Personal History: Unknown Anesthesia History Family History: Family History Unknown Exercise Tolerance Exercise Tolerance: Metabolic Equivalents>4 Pertinent Negatives Pertinent Negatives: No Symptoms of GERD Cardiac & Pulmonary Exam Cardiac Exam: Normal S1/S2 Heart Sounds Pulmonary Exam: Clear Bilateral Breath Sounds Implantable Cardiac Device Does patient have a Pacemaker or an ICD?: No Airway Exam Known Difficult Airway: No Mallampati Class: 1 Mouth Opening: Normal (> 3cm) Thyromental Distance: Greater than 3 cm Neck Range of Motion: Full ROM Neck Circumference: Normal Teeth Condition: Generalized Poor Dentition ASA Classification ASA Score: ASA 3 Emergency Case?: Yes NPO Status NPO Status: NPO Clear Liquids>2 hours Status Status: Other (s/p ) Anesthesia Plan Resuscitation Status: Full Code Anesthesia Technique: General Anesthesia Airway Planned: Endotracheal Tube Monitors Used: Standard Monitors Preoperative Comments:: post bleeding
--- NOTE | 2024-03-29 03:11 | W.PM.OP ---
Date of service: 03/29/24 Time of Service: 03:12 Operative Note Operative Note DATE OF PROCEDURE: 03/29/24 PRE-OP DIAGNOSIS: post hemoperitoneum POST-OP DIAGNOSIS: same (left broad ligament hematoma) PROCEDURE: exploratory laparotomy SURGEON: Selena Garg ASSISTING SURGEON: Dang Arreola Refer to Anesthesia Record ESTIMATED BLOOD LOSS: 1,000 COMPLICATIONS: None Patient was transported to: floor Patient's condition: stable Indications: Pt underwent uncomplicated C section earlier in the day. About 8hrs post-op she experienced increasing abdominal pain and c/o pain when taking a deep breath. Vital signs remained stable. Repeat labs showed a Hb that dropped from [address] scan of the abd/pelvis showed hemoperitoneum so the decision was made to proceed with exploratory laparotomy. Findings: There was a large amount of clot in the abdominal cavity. The uterine incision appeared hemostatic. There was no evidence of a uterine defect. There was some organized clot at the lateral edge of the left broad ligament with a small amount of oozing from around it. There was no other obvious source of bleeding. Her vital signs remained stable throughout the procedure. She received 2U PRBC due to the drop in H/H. Procedure Description: After informed consent was signed the patient was taken to the operating room. She was given general anesthesia, SCDs were placed on her legs. A gastelum catheter was already in place. The dressing and steristrips were removed. She was prepped and draped in the dorsal supine position. A time out was performed. The previous skin incision and fascial incision were re-opened. There was good hemostasis in the subcuticular layer and around the rectus muscles. There was a large amount of clots in the peritoneal cavity. These were cleared out with suction and with lap sponges. There was no obvious bleeding along the uterine incision. There was no uterine defect and the uterus itself appeared normal, appropriately sized and with good tone. There was no bleeding in the posterior cul-de-sac. The right broad ligament, tube and ovary all showed no evidence of bleeding. The left tube and ovary were normal but there was organized clot on the lateral broad ligament with a small amount of oozing. A uterine artery ligation was done proximal to the hematoma. The peritoneum was then oversewed with 3-0 vicryl in a running fashion. The abdomen was copiously irrigated. The hematoma was inspected again and there was no evidence of significant bleeding. The fascia was closed with 0-vicryl in a running unlocked fashion. The subcuticular layer was irrigated. The skin was closed with 4-0 vicryl in a running subcuticular fashion. The incision was cleaned. Mastisol and steristrips were placed. A Mepilex dressing was placed. The patient was moved to the stretcher and taken to the recovery room in stable condition.
[2024-03-29] MEDS: Droperidol 5 MG/2 ML VIAL 0.625 MG IVP (03:28)
--- NOTE | 2024-03-29 03:48 | W.ANESPOSTOP ---
Postoperative Evaluation Date, Time and Location Date Performed: 03/29/24 Time Performed: 03:48 Patient Location: PACU Vital Signs Most Recent Imported Vital Signs: Most Recent Vital Signs Temp Pulse Resp BP Pulse Ox 36.5 C 74 20 130/85 100 03/29/24 03:45 03/29/24 03:45 03/29/24 03:45 03/29/24 03:45 03/29/24 03:45 Most Recent Vital Signs Temp Pulse Resp BP Pulse Ox 36.6 C 68 18 155/70 H 96 03/28/24 12:34 03/28/24 12:34 03/28/24 12:34 03/28/24 12:34 03/28/24 12:34 Pain Score Most Recent Pain Score: Most Recent Pain Score Pain Level [Abdomen] 3 03/28/24 15:00 Pain Level 6 03/28/24 18:20 Assessment Mental Status: Awake (Alert & Oriented to Patient Baseline) Airway and Respiratory Function: Patent airway with normal (patient baseline) respiratory exam Cardiovascular Function: Hemodynamically Stable Hydration Status: Adequately Hydrated Nausea & Vomiting: No Nausea or Vomiting Pain: Pain is tolerable per patient Peripheral Nerve Block: Patient did not receive a nerve block
[2024-03-29] MEDS: Lactated Ringers 1,000 ML 120 ML IV (04:30)
[2024-03-29 04:37] LABS: Absolute Lymphocyte Count 1.92 10^3/uL (1.2-3.4); Absolute Monocyte Count 1.04 10^3/uL (0.1-0.8); Basophils % 0.3 %; HCT 28.8 % (36.0-46.0); HGB 9.7 g/dL (11.2-15.7); Immature Grans % 0.8 %; Lymphocytes % 7.4 %; MCHC 33.7 % (32.0-36.0); MCV 89 fL (80-95); MPV 10.4 fL (8.0-11.0); Neutrophils % 87.5 %; Platelet Count 256 10^3/uL (130-400); RBC 3.23 10^6/uL (3.93-5.22); RDW 14.7 % (11.7-14.6); RDW-SD 48.3 fL
[2024-03-29 04:54] LABS: Absolute Basophil Count 0.08 10^3/uL (0.0-0.2); WBC 25.94 10^3/uL (4.4-10.8)
[2024-03-29] MEDS: oxyCODONE 5 mg/Acetaminophen 325 mg TAB PO (06:00)
[2024-03-29] MEDS: Normal Saline Flush 10 ML SYR IVP ×4 (08:10→22:10)
[2024-03-29] MEDS: HYDROmorphone 2 MG/ML SYR 0.5 MG IVP (08:10)
[2024-03-29] MEDS: Ketorolac 30 MG/ML VIAL IVP ×3 (08:10→20:17)
[2024-03-29] MEDS: Methadone Liquid 10 MG/ML 50 MG PO (09:44)
--- NOTE | 2024-03-29 10:42 | OBPPV_ITS ---
Date of service: 03/29/24 Time of Service: 10:42 Assessment and Plan Assessment and plan (1) Status post primary low transverse section: Status: Acute Assessment and plan: Patient seen and examined this morning. She has a significant amount of discomfort, however it appears appropriate for her postop state. She is postop day 1 status post primary low-transverse section and postop day 0 status post exploratory laparotomy for evacuation of hemoperitoneum. She did receive 2 units of packed red blood cells for a eron of a hemoglobin of 6.4. Her vital signs are stable and appropriate this morning. Her abdomen is soft and nontender. She has active bowel sounds. Laboratory studies were ordered for this morning. She may need additional units of packed red blood cells. (2) Status post exploratory laparotomy: Status: Acute (3) Substance use disorder: Status: Acute Assessment and plan: Restarted on her methadone today at 50 mg, will try to titrate as necessary. Additional pain medication with Dilaudid is ordered. If patient remains stable, she may benefit from transfer to [facility] to be nearer to her who was sent for services. All questions answered to the best of my ability. mountain services manager will be involved. (4) Limited care, antepartum: Status: Acute Exam Physical Exam Vital signs: Temp Pulse Resp BP Pulse Ox 99.0 F 79 20 128/72 99 03/29/24 08:45 03/29/24 08:45 03/29/24 08:45 03/29/24 08:45 03/29/24 08:45 Vital Signs Reviewed: Yes Constitutional Constitutional: mild distress, thin and cooperative HEENT Exam HEENT Exam: Normal Neck Exam Neck Exam: Normal Respiratory Exam Respiratory Exam: Normal Cardiovascular Exam Cardiovascular Exam: Normal Abdominal Exam Abdomen: Tender Comments: Incision dressed with small amount of bloody drainage at the right aspect of her dressing Abdomen is soft, nondistended, positive bowel sounds Fundal Exam Fundus: Below Umbilicus and Firm Extremities Exam Extremity Exam: Normal; negative Calf Tenderness Results Hemoglobin/Hematocrit: Hgb 9.7 g/dL (11.2-15.7) L D 03/29/24 04:30 Hct 28.8 % (36.0-46.0) L 03/29/24 04:30 Abnormal Lab Findings: Abnormal Labs 03/28/24 03/28/24 03/28/24 12:25 13:30 22:45 WBC 11.43 H 31.89 H* RBC 2.52 L Hgb 7.5 L D Hct 22.9 L RDW Plt Count 408 H Absolute Neutrophils 26.50 H Absolute Monocytes 1.69 H Carbon Dioxide 20.2 L Anion Gap 11.7 H 11.8 H Glucose 157 H Calcium 8.2 L Alkaline Phosphatase 267 H 182 H Total Protein 5.3 L Albumin 2.5 L 1.7 L Ur Specific [place] >= 1.030 H >= 1.030 H Urine Protein 30 H 100 H Urine Ketones >=160 H 15 H Urine Blood Small H Large H Urine Nitrite Positive H Positive H Urine Bilirubin Small H Small H Urine Urobilinogen 1.0 H Urine RBC 3-5 H >50 H Urine WBC 10-20 H Urine Glucose 100 H Urine Methadone Screen Positive A Ur Amphetamines Screen Positive A Urine Cocaine Screen Positive A Crossmatch See Detail 03/29/24 03/29/24 00:50 04:30 WBC 26.15 H* 25.94 H* RBC 2.13 L 3.23 L Hgb 6.4 L* 9.7 L D Hct 19.6 L* 28.8 L RDW 14.7 H Plt Count Absolute Neutrophils 21.97 H 22.70 H Absolute Monocytes 1.57 H 1.04 H Carbon Dioxide Anion Gap Glucose Calcium Alkaline Phosphatase Total Protein Albumin Ur Specific [place] Urine Protein Urine Ketones Urine Blood Urine Nitrite Urine Bilirubin Urine Urobilinogen Urine RBC Urine WBC Urine Glucose Urine Methadone Screen Ur Amphetamines Screen Urine Cocaine Screen Crossmatch
[2024-03-29 10:58] LABS: Hepatitis B Surface Ag Negative (Negative)
[2024-03-29 11:03] LABS: Abs Immature Grans 0.09 10^3/uL (0.0-0.06); Absolute Basophil Count 0.02 10^3/uL (0.0-0.2); Basophils % 0.1 %; HCT 22.3 % (36.0-46.0); HGB 7.4 g/dL (11.2-15.7); Immature Grans % 0.5 %; Lymphocytes % 13.1 %; MCH 29.2 pg (27.0-33.0); MCHC 33.2 % (32.0-36.0); MCV 88 fL (80-95); MPV 10.2 fL (8.0-11.0); Monocytes % 5.9 %; Neutrophils % 80.4 %; Platelet Count 203 10^3/uL (130-400); RBC 2.53 10^6/uL (3.93-5.22); RDW-SD 48.3 fL; WBC 17.39 10^3/uL (4.4-10.8)
[2024-03-29 11:05] LABS: Absolute Lymphocyte Count 2.28 10^3/uL (1.2-3.4); Absolute Monocyte Count 1.03 10^3/uL (0.1-0.8); Absolute Neutrophil Count 13.98 10^3/uL (1.2-6.7)
[2024-03-29] MEDS: Lactated Ringers 1,000 ML 125 ML IV (11:28)
[2024-03-29 11:59] LABS: HIV 1/2 Ab Rapid Negative (Negative)
[2024-03-29] MEDS: HYDROmorphone 2 MG/ML SYR IVP ×3 (14:05→21:55)
[2024-03-29] MEDS: Lactated Ringers 1,000 ML 200 ML IV (14:43)
[2024-03-29 17:53] LABS: Abs Immature Grans 0.06 10^3/uL (0.0-0.06); Absolute Basophil Count 0.02 10^3/uL (0.0-0.2); Absolute Eosinophil Count 0.01 10^3/uL (0.0-0.7); Absolute Monocyte Count 0.81 10^3/uL (0.1-0.8); Absolute Neutrophil Count 8.22 10^3/uL (1.2-6.7); Basophils % 0.2 %; Eosinophils % 0.1 %; Immature Grans % 0.5 %; Lymphocytes % 20.3 %; MCHC 33.7 % (32.0-36.0); MCV 89 fL (80-95); MPV 10.3 fL (8.0-11.0); Monocytes % 7.1 %; Neutrophils % 71.8 %; Platelet Count 208 10^3/uL (130-400); RDW 15.5 % (11.7-14.6); RDW-SD 49.7 fL; WBC 11.45 10^3/uL (4.4-10.8)
[2024-03-29 17:57] LABS: Absolute Lymphocyte Count 2.32 10^3/uL (1.2-3.4)
[2024-03-29 17:58] LABS: HGB 6.9 g/dL (11.2-15.7)
[2024-03-29 17:59] LABS: HCT 20.5 % (36.0-46.0)
[2024-03-29 18:14] LABS: Diff Comment Diff Reviewed
[2024-03-29 18:15] LABS: Basophilic Stippling Present; Hypochromasia 2+
[2024-03-29] MEDS: Docusate Sodium 100 MG CAP PO (18:19)
--- NOTE | 2024-03-29 18:41 | W.PM.OBPNV1 ---
Date of service: 03/29/24 Time of Service: 18:41 Assessment and Plan Assessment and plan (1) Status post primary low transverse section: Status: Acute Assessment and plan: Patient is a day 1 status post primary low-transverse section for breech and day 0 for evacuation of hemoperitoneum. Overall she is clinically improved though her hemoglobin has trended downward. This evening's hemoglobin is 6.9. She is otherwise asymptomatic though had a significant blood loss. I do think she would benefit from additional 2 units of packed red blood cells. This was discussed with the patient and blood is ordered for this evening. Will recheck a CBC posttransfusion. (2) Hemoperitoneum: Status: Acute (3) Postoperative anemia: Status: Acute Assessment and plan: Transfuse an additional 2 units packed red blood cells Subjective Subjective Interval history: Patient seen and examined this evening. Overall doing better. Her pain is better controlled. She is not passing flatus as of yet though has no nausea or vomiting. Her vital signs remained stable, her urine output is appropriate. Her hemoglobin has drifted down appropriately and expectedly to 6.9. She received a total of 2 units of packed red blood cells intraoperatively yesterday. She will receive an additional 2 units of packed red blood cells today. Transfusion was discussed. Orders were placed. Exam Physical Exam Vital signs: Temp Pulse Resp BP Pulse Ox 97.3 F L 94 H 16 113/68 100 03/29/24 17:11 03/29/24 17:11 03/29/24 17:11 03/29/24 17:11 03/29/24 15:08 HEENT Exam HEENT Exam: Normal Respiratory Exam Respiratory Exam: Normal Cardiovascular Exam Cardiovascular Exam: Normal Abdominal Exam Abdomen: Tender Comments: Bowel sounds present, high-pitched, some distention. Abdomen is soft though tender. Not rigid or with significant rebound Results Hemoglobin/Hematocrit: Hgb 6.9 g/dL (11.2-15.7) L* 03/29/24 17:41 Hct 20.5 % (36.0-46.0) L* 03/29/24 17:41 Abnormal Lab Findings: Abnormal Labs 03/28/24 03/28/24 03/28/24 12:25 13:30 22:45 WBC 11.43 H 31.89 H* RBC 2.52 L Hgb 7.5 L D Hct 22.9 L RDW Plt Count 408 H Absolute Neutrophils 26.50 H Absolute Monocytes 1.69 H Carbon Dioxide 20.2 L Anion Gap 11.7 H 11.8 H Glucose 157 H Calcium 8.2 L Alkaline Phosphatase 267 H 182 H Total Protein 5.3 L Albumin 2.5 L 1.7 L Ur Specific [place] >= 1.030 H >= 1.030 H Urine Protein 30 H 100 H Urine Ketones >=160 H 15 H Urine Blood Small H Large H Urine Nitrite Positive H Positive H Urine Bilirubin Small H Small H Urine Urobilinogen 1.0 H Urine RBC 3-5 H >50 H Urine WBC 10-20 H Urine Glucose 100 H Urine Methadone Screen Positive A Ur Amphetamines Screen Positive A Urine Cocaine Screen Positive A Crossmatch See Detail 03/29/24 03/29/24 03/29/24 00:50 04:30 10:53 WBC 26.15 H* 25.94 H* 17.39 H RBC 2.13 L 3.23 L 2.53 L Hgb 6.4 L* 9.7 L D 7.4 L D Hct 19.6 L* 28.8 L 22.3 L RDW 14.7 H 15.0 H Plt Count Absolute Neutrophils 21.97 H 22.70 H 13.98 H Absolute Monocytes 1.57 H 1.04 H 1.03 H Carbon Dioxide Anion Gap Glucose Calcium Alkaline Phosphatase Total Protein Albumin Ur Specific [place] Urine Protein Urine Ketones Urine Blood Urine Nitrite Urine Bilirubin Urine Urobilinogen Urine RBC Urine WBC Urine Glucose Urine Methadone Screen Ur Amphetamines Screen Urine Cocaine Screen Crossmatch 03/29/24 17:41 WBC 11.45 H RBC 2.30 L Hgb 6.9 L* Hct 20.5 L* RDW 15.5 H Plt Count Absolute Neutrophils 8.22 H Absolute Monocytes 0.81 H Carbon Dioxide Anion Gap Glucose Calcium Alkaline Phosphatase Total Protein Albumin Ur Specific [place] Urine Protein Urine Ketones Urine Blood Urine Nitrite Urine Bilirubin Urine Urobilinogen Urine RBC Urine WBC Urine Glucose Urine Methadone Screen Ur Amphetamines Screen Urine Cocaine Screen Crossmatch
--- NOTE | 2024-03-29 23:47 | NUR.NOTE ---
Pre Blood Transfusion Physical assessment: patients lungs were auscultated anteriorly throughout lung sounds, clear without wheezes or crackles. Heart sounds audible regular in rhythm. This assessment was performed shortly after her first set of pre-infusion vital signs. which are in the pts work list vitals. prior to starting infusion. pt does have noticeable right extremity, edema. she is wearing a ring. pt denies any loss of sensation, numbness or tingling in extremity. palpable radial pulses 3+. pt is oriented x4 Person, Place, Time, Situation. She is noticeably drowsy. Low Hemoglobin Teaching Was performed Verbally by me: I did explain the traditional life span of a Red blood cell is 180 days. I explained that each human red blood cell has five sites, where a hemoglobin molecule, can bind, or attach. I explained after the 180 day life span, the Spleen is the organ which recycles red blood cells. I did explain that the hemoglobin molecule is responsible for transporting oxygen to the human body and organs. I did explain the symptoms of low hemoglobin can include, fatigue, veritgo dizziness, nausea, sometimes vomiting, temperature, instability. Prior to beginning patient did report the room temperature was comfortable. prior to infusion patient did report her pain to be a 4/10. which per L&D nurse is down from a 6/10. Nursing Note:
[2024-03-30] VITALS (14 sets, daily range): BP systolic 102–130; BP diastolic 63–78; PULSE 65–87; RESP 12–20; TEMP 35.3–36.9; O2SAT 94–98
[2024-03-30] MEDS: Lactated Ringers 1,000 ML 200 ML IV ×2 (00:45→06:49)
[2024-03-30] MEDS: HYDROmorphone 2 MG/ML SYR 1 MG IVP (01:01)
--- NOTE | 2024-03-30 01:02 | W.PM.OBPNV1 ---
Date of service: 03/30/24 Time of Service: 01:02 Assessment and Plan Assessment and plan (1) Status post primary low transverse section: Status: Acute Assessment and plan: Postop day 2 status post primary low-transverse section for breech with reoperation for hemoperitoneum. She had a hemoglobin eron of 6.9. She has received a total of 3 units of packed red blood cells and will receive a fourth at this point. Pain control has certainly been a challenge for her. She does have mild abdominal distention with active bowel sounds. She may be developing an early ileus. She was encouraged incentive spirometry. Will continue to monitor her urine output and her vital signs closely. (2) Substance use disorder: Status: Acute (3) Status post exploratory laparotomy: Status: Acute Subjective Subjective Interval history: Patient seen and examined. More uncomfortable feeling of fullness in her upper abdomen. No nausea or vomiting. Patient is hungry. Vital signs remained stable. Urine output has been approximately 100 cc/h. She has received 1 unit of packed red blood cells second will be hung shortly. Will increase by giving 1 additional milligram of Dilaudid now for better pain control. Continue to monitor closely. CBC status post second unit of packed cells. Exam Physical Exam Vital signs: Temp Pulse Resp BP Pulse Ox 97.3 F L 84 20 119/71 98 03/30/24 00:38 03/30/24 00:38 03/30/24 00:38 03/30/24 00:38 03/30/24 00:38 Results Hemoglobin/Hematocrit: Hgb 6.9 g/dL (11.2-15.7) L* 03/29/24 17:41 Hct 20.5 % (36.0-46.0) L* 03/29/24 17:41 Abnormal Lab Findings: Abnormal Labs 03/28/24 03/28/24 03/28/24 12:25 13:30 22:45 WBC 11.43 H 31.89 H* RBC 2.52 L Hgb 7.5 L D Hct 22.9 L RDW Plt Count 408 H Absolute Neutrophils 26.50 H Absolute Monocytes 1.69 H Carbon Dioxide 20.2 L Anion Gap 11.7 H 11.8 H Glucose 157 H Calcium 8.2 L Alkaline Phosphatase 267 H 182 H Total Protein 5.3 L Albumin 2.5 L 1.7 L Ur Specific [place] >= 1.030 H >= 1.030 H Urine Protein 30 H 100 H Urine Ketones >=160 H 15 H Urine Blood Small H Large H Urine Nitrite Positive H Positive H Urine Bilirubin Small H Small H Urine Urobilinogen 1.0 H Urine RBC 3-5 H >50 H Urine WBC 10-20 H Urine Glucose 100 H Urine Methadone Screen Positive A Ur Amphetamines Screen Positive A Urine Cocaine Screen Positive A Crossmatch See Detail 03/29/24 03/29/24 03/29/24 00:50 04:30 10:53 WBC 26.15 H* 25.94 H* 17.39 H RBC 2.13 L 3.23 L 2.53 L Hgb 6.4 L* 9.7 L D 7.4 L D Hct 19.6 L* 28.8 L 22.3 L RDW 14.7 H 15.0 H Plt Count Absolute Neutrophils 21.97 H 22.70 H 13.98 H Absolute Monocytes 1.57 H 1.04 H 1.03 H Carbon Dioxide Anion Gap Glucose Calcium Alkaline Phosphatase Total Protein Albumin Ur Specific [place] Urine Protein Urine Ketones Urine Blood Urine Nitrite Urine Bilirubin Urine Urobilinogen Urine RBC Urine WBC Urine Glucose Urine Methadone Screen Ur Amphetamines Screen Urine Cocaine Screen Crossmatch 03/29/24 17:41 WBC 11.45 H RBC 2.30 L Hgb 6.9 L* Hct 20.5 L* RDW 15.5 H Plt Count Absolute Neutrophils 8.22 H Absolute Monocytes 0.81 H Carbon Dioxide Anion Gap Glucose Calcium Alkaline Phosphatase Total Protein Albumin Ur Specific [place] Urine Protein Urine Ketones Urine Blood Urine Nitrite Urine Bilirubin Urine Urobilinogen Urine RBC Urine WBC Urine Glucose Urine Methadone Screen Ur Amphetamines Screen Urine Cocaine Screen Crossmatch
--- NOTE | 2024-03-30 01:35 | NUR.NOTE ---
2nd Unit PRBC Pre assessment. Pt oriented x4 to Person, Place, Time, Event. right lower forearm IV patient with positive blood return. Flushes easily. Right upper extremity scant edema. which as present prior to 1st unit of PRBC's. Heart sounds, Regular Rhythm. This time I do hear a heart murmur with auscultation with [facility] 4 stethoscope with Echo attachment. Pt denies, feelings of shortness of breath her skin is free from any rash. Lung sounds anteriorly are clear throughout with out crackles or wheezes. Pt denies any pain aside from right sided rib pain, which the patient had prior to any transfusions since my arrival. She remains resting comfortably in bed, with significant other at bedside. palpable radial pulses are 3+ bilaterally. Nursing Note:
[2024-03-30] MEDS: HYDROmorphone 2 MG/ML SYR IVP ×2 (03:07→06:49)
--- NOTE | 2024-03-30 06:51 | OBPPV_ITS ---
Date of service: 03/30/24 Time of Service: 06:51 Assessment and Plan Assessment and plan (1) Status post primary low transverse section: Status: Acute Assessment and plan: Patient is day #2 and postoperative day 2 status post primary low- transverse section for breech presentation and active labor. She is also postoperative day #1 status post exploratory laparotomy for hemoperitoneum with no discrete source located. She did have a drift in her hemoglobin to 6.9 after receiving a total of 2 units intraoperatively from her first and second stage surgery. She received an additional 2 units of packed cells through the night last night. This morning, she continues to have abdominal pain and some abdominal distention though her distention is somewhat increased with an abdomen that is more firm today than a few hours ago. She has been receiving IV pain medication. Plan is for this morning to repeat her blood work including a CBC and a CMP. Will repeat imaging studies as indicated. The possibility exists that she has not ileus versus ongoing intra-abdominal process. (2) Substance use disorder: Status: Acute (3) Status post exploratory laparotomy: Status: Acute Subjective Subjective Interval history: Patient seen and examined this morning. Continue to have high pain medication needs. Vital signs remained stable. Patient is afebrile. During the course of the day yesterday, she did have a hemoglobin which nadired to 6.9. For this reason, she received 2 units of packed red blood cells which completed approximately 3 AM. She is due for her morning blood draw. On examination evaluation today, her abdomen is continuing to be somewhat more distended, though this morning more firm. Exam Physical Exam Vital signs: Temp Pulse Resp BP Pulse Ox 98.2 F 76 18 124/74 95 03/30/24 03:53 03/30/24 03:53 03/30/24 03:53 03/30/24 03:53 03/30/24 02:30 Vital Signs Reviewed: Yes Notable Details: Vital signs are stable Narrative: Urine output over the course of the last 12 hours was 1300, pale yellow urine. Constitutional Constitutional: moderate distress Comments: Abdominal pain, no nausea vomiting. Respiratory Exam Respiratory Exam: Normal Cardiovascular Exam Cardiovascular Exam: Normal Abdominal Exam Comments: Abdomen is distended. Bowel sounds are present. There is tenderness throughout her abdomen and an increase in firmness throughout. Neurological Exam Neurological Exam: Normal Results Hemoglobin/Hematocrit: Hgb 6.9 g/dL (11.2-15.7) L* 03/29/24 17:41 Hct 20.5 % (36.0-46.0) L* 03/29/24 17:41 Abnormal Lab Findings: Abnormal Labs 03/28/24 03/28/24 03/28/24 12:25 13:30 22:45 WBC 11.43 H 31.89 H* RBC 2.52 L Hgb 7.5 L D Hct 22.9 L RDW Plt Count 408 H Absolute Neutrophils 26.50 H Absolute Monocytes 1.69 H Carbon Dioxide 20.2 L Anion Gap 11.7 H 11.8 H Glucose 157 H Calcium 8.2 L Alkaline Phosphatase 267 H 182 H Total Protein 5.3 L Albumin 2.5 L 1.7 L Ur Specific [place] >= 1.030 H >= 1.030 H Urine Protein 30 H 100 H Urine Ketones >=160 H 15 H Urine Blood Small H Large H Urine Nitrite Positive H Positive H Urine Bilirubin Small H Small H Urine Urobilinogen 1.0 H Urine RBC 3-5 H >50 H Urine WBC 10-20 H Urine Glucose 100 H Urine Methadone Screen Positive A Ur Amphetamines Screen Positive A Urine Cocaine Screen Positive A Crossmatch See Detail 03/29/24 03/29/24 03/29/24 00:50 04:30 10:53 WBC 26.15 H* 25.94 H* 17.39 H RBC 2.13 L 3.23 L 2.53 L Hgb 6.4 L* 9.7 L D 7.4 L D Hct 19.6 L* 28.8 L 22.3 L RDW 14.7 H 15.0 H Plt Count Absolute Neutrophils 21.97 H 22.70 H 13.98 H Absolute Monocytes 1.57 H 1.04 H 1.03 H Carbon Dioxide Anion Gap Glucose Calcium Alkaline Phosphatase Total Protein Albumin Ur Specific [place] Urine Protein Urine Ketones Urine Blood Urine Nitrite Urine Bilirubin Urine Urobilinogen Urine RBC Urine WBC Urine Glucose Urine Methadone Screen Ur Amphetamines Screen Urine Cocaine Screen Crossmatch 03/29/24 17:41 WBC 11.45 H RBC 2.30 L Hgb 6.9 L* Hct 20.5 L* RDW 15.5 H Plt Count Absolute Neutrophils 8.22 H Absolute Monocytes 0.81 H Carbon Dioxide Anion Gap Glucose Calcium Alkaline Phosphatase Total Protein Albumin Ur Specific [place] Urine Protein Urine Ketones Urine Blood Urine Nitrite Urine Bilirubin Urine Urobilinogen Urine RBC Urine WBC Urine Glucose Urine Methadone Screen Ur Amphetamines Screen Urine Cocaine Screen Crossmatch
--- NOTE | 2024-03-30 06:57 | NUR.NOTE ---
015 pts abdomen is firmer at this time and increased pain . dr jimenez was notified and came into assess the patient . labs drawn vitals stable 36.2 69 22 113/65 96 % room air dilaudid 2mg iv given . sleepy but is arouseableNursing Note:
[2024-03-30 07:01] LABS: Abs Immature Grans 0.07 10^3/uL (0.0-0.06); Absolute Basophil Count 0.02 10^3/uL (0.0-0.2); Absolute Eosinophil Count 0.03 10^3/uL (0.0-0.7); Absolute Lymphocyte Count 2.34 10^3/uL (1.2-3.4); Absolute Monocyte Count 0.66 10^3/uL (0.1-0.8); Absolute Neutrophil Count 6.33 10^3/uL (1.2-6.7); Basophils % 0.2 %; Eosinophils % 0.3 %; HGB 8.3 g/dL (11.2-15.7); Immature Grans % 0.7 %; Lymphocytes % 24.8 %; MCH 29.3 pg (27.0-33.0); MCHC 33.2 % (32.0-36.0); MCV 88 fL (80-95); MPV 9.8 fL (8.0-11.0); Platelet Count 167 10^3/uL (130-400); RBC 2.83 10^6/uL (3.93-5.22); RDW 15.7 % (11.7-14.6); RDW-SD 51.2 fL; WBC 9.45 10^3/uL (4.4-10.8)
[2024-03-30 07:21] LABS: ALT 16 U/L (14-59); AST 28 U/L (15-37); Albumin 1.4 g/dL (3.4-5.0); Alkaline Phosphatase 127 U/L (46-116); Anion Gap 4.6 mmol/L (3-11); BUN 12 mg/dL (7-18); Bilirubin, Total 0.31 mg/dL (0.2-1.0); CO2 27.4 mmol/L (21.0-32.0); CREATININE 0.6 mg/dL (0.55-1.02); Calcium 7.6 mg/dL (8.5-10.1); Chloride 107 mmol/L (98-107); Estimated GFR 126.09 (mL/min/1.73m2); Glucose 77 mg/dL (74-106); Potassium 3.8 mmol/L (3.5-5.1); Sodium 139 mmol/L (136-145); Total Protein 4.6 g/dL (6.4-8.2)
--- NOTE | 2024-03-30 07:31 | W.PM.OBPNV1 ---
Date of service: 03/30/24 Time of Service: 07:31 Assessment and Plan Assessment and plan (1) Postoperative anemia: Status: Acute Assessment and plan: Pt has received 4 units of PRBC: two intraoperative, two in past 12 hours. Appropriate rise in hemoglobin after last nights transfusion. Will continue to follow h/h (2) Status post exploratory laparotomy: Status: Acute Assessment and plan: and evacuation of 1L of blood and clot from pelvis. lower uterine segment L broad ligament site oozing was only bleeding site noted. It was oversewn and L sided uterine vessels ligated. Pt's abd distended this morning. Will obtain CT of abd/pelvis with contrast. (3) Status post primary low transverse section: Status: Acute Assessment and plan: transfered to [facility]. Plan is to transfer patient if possible, pending results of labs and imaging studies. (4) Substance use disorder: Status: Acute Assessment and plan: Methadone dosing resumed at 50mg. 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 L sided broad ligament hematoma and ligation of L uterine vessels. Yesterday pt was started on Methadone 50mg PO in additional to receiving postop narcotics for postop analgesia. Tolerating POs. She developed abdominal distention overnight w/o n/v. No recall when she last had a BM. Constitutional Constitutional: somnolent (arousable. ) Comments: C/O pain with abdominal palpation. Respiratory Exam Respiratory Exam: Normal Cardiovascular Exam Cardiovascular Exam: Normal Abdominal Exam Abdomen: Tender and Other (distended, tympanic to percussion. Nl bowel sounds in all 4 quadrants.) Fundal Exam Fundus: Below Umbilicus and Firm Rectal Exam Rectal Exam: Not Done Back/Spine/Pelvis Exam Back Exam: Not Done Skin Exam Skin Exam: Normal Neurological Exam Neurological Exam: Abnormal (arousable and oriented when awake. ) Psychiatric Exam Psychiatric Exam: Not Done Results Hemoglobin/Hematocrit: Hgb 8.3 g/dL (11.2-15.7) L 03/30/24 06:50 Hct 25.0 % (36.0-46.0) L 03/30/24 06:50 Abnormal Lab Findings: Abnormal Labs 03/28/24 03/28/24 03/28/24 12:25 13:30 22:45 WBC 11.43 H 31.89 H* RBC 2.52 L Hgb 7.5 L D Hct 22.9 L RDW Plt Count 408 H Absolute Neutrophils 26.50 H Absolute Monocytes 1.69 H Carbon Dioxide 20.2 L Anion Gap 11.7 H 11.8 H Glucose 157 H Calcium 8.2 L Alkaline Phosphatase 267 H 182 H Total Protein 5.3 L Albumin 2.5 L 1.7 L Ur Specific [place] >= 1.030 H >= 1.030 H Urine Protein 30 H 100 H Urine Ketones >=160 H 15 H Urine Blood Small H Large H Urine Nitrite Positive H Positive H Urine Bilirubin Small H Small H Urine Urobilinogen 1.0 H Urine RBC 3-5 H >50 H Urine WBC 10-20 H Urine Glucose 100 H Urine Methadone Screen Positive A Ur Amphetamines Screen Positive A Urine Cocaine Screen Positive A Crossmatch See Detail 03/29/24 03/29/24 03/29/24 00:50 04:30 10:53 WBC 26.15 H* 25.94 H* 17.39 H RBC 2.13 L 3.23 L 2.53 L Hgb 6.4 L* 9.7 L D 7.4 L D Hct 19.6 L* 28.8 L 22.3 L RDW 14.7 H 15.0 H Plt Count Absolute Neutrophils 21.97 H 22.70 H 13.98 H Absolute Monocytes 1.57 H 1.04 H 1.03 H Carbon Dioxide Anion Gap Glucose Calcium Alkaline Phosphatase Total Protein Albumin Ur Specific [place] Urine Protein Urine Ketones Urine Blood Urine Nitrite Urine Bilirubin Urine Urobilinogen Urine RBC Urine WBC Urine Glucose Urine Methadone Screen Ur Amphetamines Screen Urine Cocaine Screen Crossmatch 03/29/24 03/30/24 17:41 06:50 WBC 11.45 H RBC 2.30 L 2.83 L Hgb 6.9 L* 8.3 L Hct 20.5 L* 25.0 L RDW 15.5 H 15.7 H Plt Count Absolute Neutrophils 8.22 H Absolute Monocytes 0.81 H Carbon Dioxide Anion Gap Glucose Calcium 7.6 L Alkaline Phosphatase 127 H Total Protein 4.6 L Albumin 1.4 L Ur Specific [place] Urine Protein Urine Ketones Urine Blood Urine Nitrite Urine Bilirubin Urine Urobilinogen Urine RBC Urine WBC Urine Glucose Urine Methadone Screen Ur Amphetamines Screen Urine Cocaine Screen Crossmatch
[2024-03-30] MEDS: Omnipaque 350 MG/ML 100 ML BTL IJ (08:14)
[2024-03-30] MEDS: Normal Saline - Diluent 50 ML VIAL IJ (08:14)
--- NOTE | 2024-03-30 08:38 | DI.CT_ITS ---
Exam(s) CT ABDOMEN PELVIS W EXAM: CT ABDOMEN PELVIS W CLINICAL HISTORY: postop abdominal distension. TECHNIQUE: Imaging Protocol: Axial computed tomography images with coronal and sagittal reformatted images were created and reviewed CONTRAST MATERIAL: Intravenous: Omnipaque-350 100cc Oral: None COMPARISON: CT CT CHEST PE ABD PELVIS W from 03/28/2024 FINDINGS: VISUALIZED LUNG BASES: There is now mild infiltrate in the right lower lobe. Tiny right pleural effu danielle noted.. ABDOMEN: There is free intraperitoneal air again evident although less than previous. The amount of ascites i n the upper abdomen is less than previous (2 days ago). Again noted is air-gas as in the anterior abdominal wall subcutaneous fat and anterior abdominal wall musculature as well as within the pelvis. See below. LIVER: There are no focal hepatic lesions evident. No dilated intrahepatic ducts. GALLBLADDER/BILIARY: No obvious gallbladder pathology. CBD is not dilated. PANCREAS: No evidence of pancreatic mass nor dilatation of the pancreatic duct. SPLEEN: Spleen is not enlarged. No obvious intrasplenic lesions. Splenic and portal veins are paten t. ADRENALS: There are no significant adrenal masses. KIDNEYS:No cysts evident. No solid renal masses. No calculi nor hydronephrosis.. ABDOMINAL AORTA: Abdominal aorta is not enlarged. LYMPH NODES:There is no retroperitoneal nor paraaortic adenopathy. ABDOMINAL WALL: No evidence of significant anterior abdominal wall nor inguinal hernia. GI: There is no evidence of bowel obstruction, free air, nor abscess. PELVIS: GI: No evidence of appendicitis.No evidence of sigmoid diverticulitis. LYMPH NODES: There is no intrapelvic nor inguinal adenopathy. REPRODUCTIVE: Again noted is an large abnormal appearing uterus, most probably post . The size of the large intrapelvic hematoma posterior to the uterus has slightly decreased. However, the enti re posterior wall of the uterus exhibits less enhancement than previous. The posterior wall of the u terus is also poorly defined in the inferior half. Also in the anterior aspect of the lower uterine segment. Suspect that there has been uterine rupture. URINARY BLADDER: Again noted to contain a Jim catheter. Not distended. OSSEOUS: No fractures and no significant osseous lesions. IMPRESSION: 1. Compared to the prior CT scan of 03/28/2024 the amount of free air and hemoperitoneum has decrease d, as has the size of the large hematoma in the pelvis which was previously described posterior to th e uterus.. However, the integrity of the posterior wall the uterus is in question as it exhibits les s than normal enhancement and exhibits indistinctness posteriorly as well as again in the anterior as pect of the lower uterine segment. Possibly related to severe edema of the myometrium at these level s but cannot exclude developing necrosis. The amount of air-gas within the endometrial cavity has de creased from the scan of 2 days ago. 2. Correlation with any interval surgery since the last scan 2 days ago is recommended. 3. Jim catheter remains in good position within the urinary bladder and the bladder is not overly d istended. 4. Mild infiltrate and pleural fluid now evident in the right lung base. RADIATION DOSE DELIVERED: 316.55mGy.cm Total DLP DATA REPOSITORY: All CT scans at this facility are submitted to the National Radiology Data Registry (NRDR) Dose Index Registry (DIR) with the [employer] (ACR). RADIATION OPTIMIZATION: All CT scans at this facility use at least one of these dose optimization te chniques: automated exposure control; mA and/or kV adjustment per patient size (includes targeted exa ms where dose is matched to clinical indication); or iterative reconstruction.
[2024-03-30] MEDS: Normal Saline Flush 10 ML SYR IVP ×3 (08:44→12:55)
[2024-03-30] MEDS: Methadone Liquid 10 MG/ML 50 MG PO (09:33)
[2024-03-30 10:14] LABS: HIV-1/2 Ag & Ab Screen Negative (Negative)
[2024-03-30] MEDS: Methadone Liquid 10 MG/ML 60 MG PO (10:14)
[2024-03-30 10:54] LABS: Hepatitis C Ab w Rflx HCV PCR Reactive (Negative)
[2024-03-30 11:06] LABS: Varicella IgG Antibody Positive (See Note)
[2024-03-30 11:09] LABS: Rubella IgG Ab (UVM) Positive (See Note)
[2024-03-30] MEDS: Docusate Sodium 100 MG CAP PO (11:26)
[2024-03-30 12:10] LABS: Fentanyl Scr w/Rfx Confirm Positive ng/mL (<1)
[2024-03-30] MEDS: Ibuprofen 600 MG TAB PO ×3 (12:55→23:40)
--- NOTE | 2024-03-30 13:03 | W.PM.OBPNV1 ---
Date of service: 03/30/24 Time of Service: 13:03 Assessment and Plan Assessment and plan (1) Status post primary low transverse section: Status: Acute Assessment and plan: Status post primary low-transverse section day #2 for breech presentation, active labor, complete (2) Status post exploratory laparotomy: Status: Acute Assessment and plan: Postop day 1 status post return to the OR for evacuation of hemoperitoneum. Currently stable. She has received a total of 4 units of packed red blood cells. Vital signs are appropriate. Urine output is adequate. (3) Substance use disorder: Status: Acute Assessment and plan: We have resumed her methadone use of which she received 50 mg yesterday and 60 today. This will be titrated as appropriate. She would be a reasonable candidate for ongoing treatment of her substance use disorder and the possibility of a stay with rehab for detox versus maintenance. Will attempt to transfer her to [facility] at this point for complex postoperative care, and to be in proximity of her who is currently in the intensive care unit. 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 Subjective Subjective Interval history: Patient seen and examined this afternoon. Feeling somewhat better. Still having abdominal discomfort. No flatus as of yet. Desires to shower. We had a conversation today regarding her ongoing care. She would strongly like to be with her baby. She is not ready for discharge from medical standpoint due to her recent surgical interventions. We discussed the possibility of staying here at the hospital until she is medically stable for discharge to home versus transfer to [facility] to be with her in the NICU. She would prefer ongoing care at [facility]. Her questions were answered this afternoon. I will reach out to maternal- medicine for the possibility of transfer and ongoing care. All questions were answered at this point Exam Physical Exam Vital signs: Temp Pulse Resp BP Pulse Ox 97.2 F L 67 12 114/69 97 03/30/24 12:47 03/30/24 12:47 03/30/24 12:47 03/30/24 12:47 03/30/24 12:47 Vital Signs Reviewed: Yes Constitutional Constitutional: no acute distress and somnolent (Arousable) HEENT Exam HEENT Exam: Normal Respiratory Exam Respiratory Exam: Normal Cardiovascular Exam Cardiovascular Exam: Normal Abdominal Exam Abdomen: Tender Comments: Mild distention Results Hemoglobin/Hematocrit: Hgb 8.3 g/dL (11.2-15.7) L 03/30/24 06:50 Hct 25.0 % (36.0-46.0) L 03/30/24 06:50 Abnormal Lab Findings: Abnormal Labs 03/28/24 03/28/24 03/28/24 12:25 12:55 13:30 WBC 11.43 H RBC Hgb Hct RDW Plt Count Absolute Neutrophils Absolute Monocytes Carbon Dioxide Anion Gap 11.7 H Glucose Calcium Alkaline Phosphatase 267 H Total Protein Albumin 2.5 L Ur Specific [place] >= 1.030 H Urine Protein 30 H Urine Ketones >=160 H Urine Blood Small H Urine Nitrite Positive H Urine Bilirubin Small H Urine Urobilinogen 1.0 H Urine RBC 3-5 H Urine WBC Urine Glucose Urine Methadone Screen Positive A Ur Amphetamines Screen Positive A Urine Cocaine Screen Positive A Hepatitis C Antibody Reactive A Crossmatch See Detail 03/28/24 03/29/24 03/29/24 22:45 00:50 04:30 WBC 31.89 H* 26.15 H* 25.94 H* RBC 2.52 L 2.13 L 3.23 L Hgb 7.5 L D 6.4 L* 9.7 L D Hct 22.9 L 19.6 L* 28.8 L RDW 14.7 H Plt Count 408 H Absolute Neutrophils 26.50 H 21.97 H 22.70 H Absolute Monocytes 1.69 H 1.57 H 1.04 H Carbon Dioxide 20.2 L Anion Gap 11.8 H Glucose 157 H Calcium 8.2 L Alkaline Phosphatase 182 H Total Protein 5.3 L Albumin 1.7 L Ur Specific [place] >= 1.030 H Urine Protein 100 H Urine Ketones 15 H Urine Blood Large H Urine Nitrite Positive H Urine Bilirubin Small H Urine Urobilinogen Urine RBC >50 H Urine WBC 10-20 H Urine Glucose 100 H Urine Methadone Screen Ur Amphetamines Screen Urine Cocaine Screen Hepatitis C Antibody Crossmatch 03/29/24 03/29/24 03/30/24 10:53 17:41 06:50 WBC 17.39 H 11.45 H RBC 2.53 L 2.30 L 2.83 L Hgb 7.4 L D 6.9 L* 8.3 L Hct 22.3 L 20.5 L* 25.0 L RDW 15.0 H 15.5 H 15.7 H Plt Count Absolute Neutrophils 13.98 H 8.22 H Absolute Monocytes 1.03 H 0.81 H Carbon Dioxide Anion Gap Glucose Calcium 7.6 L Alkaline Phosphatase 127 H Total Protein 4.6 L Albumin 1.4 L Ur Specific [place] Urine Protein Urine Ketones Urine Blood Urine Nitrite Urine Bilirubin Urine Urobilinogen Urine RBC Urine WBC Urine Glucose Urine Methadone Screen Ur Amphetamines Screen Urine Cocaine Screen Hepatitis C Antibody Crossmatch
[2024-03-30] MEDS: Acetaminophen 325 MG TAB 650 MG PO ×3 (14:26→23:36)
--- NOTE | 2024-03-30 15:46 | OBPPV_ITS ---
Date of service: 03/30/24 Time of Service: 15:46 Subjective Subjective Interval history: Patient seen this afternoon. Feeling better. Pain is under better control. She did shower. She has no nausea and vomiting. She is hungry. We had an extended conversation this afternoon regarding the possibility of having her transferred to [facility] to be in the presence of her . We also discussed breast-feeding, and substance use. She does understand that her urine drug screen was positive. This is positive for substances that would not be appropriate with breast-feeding such as cocaine. In light of that, she does understand that establishing milk production for the possibility of breast- feeding down the road would be important. She also understands the need to pump and discard the breastmilk that she is currently producing if any. She is re asonably motivated for sobriety. She is also desirous of being with her baby and attempting feeding by breastmilk if possible. She was appreciative of the support that was given. Exam Physical Exam Vital signs: Temp Pulse Resp BP Pulse Ox 97.2 F L 67 12 114/69 97 03/30/24 12:47 03/30/24 12:47 03/30/24 12:47 03/30/24 12:47 03/30/24 12:47 Vital Signs Reviewed: Yes Results Hemoglobin/Hematocrit: Hgb 8.3 g/dL (11.2-15.7) L 03/30/24 06:50 Hct 25.0 % (36.0-46.0) L 03/30/24 06:50 Abnormal Lab Findings: Abnormal Labs 03/28/24 03/28/24 03/28/24 12:25 12:55 13:30 WBC 11.43 H RBC Hgb Hct RDW Plt Count Absolute Neutrophils Absolute Monocytes Carbon Dioxide Anion Gap 11.7 H Glucose Calcium Alkaline Phosphatase 267 H Total Protein Albumin 2.5 L Ur Specific [place] >= 1.030 H Urine Protein 30 H Urine Ketones >=160 H Urine Blood Small H Urine Nitrite Positive H Urine Bilirubin Small H Urine Urobilinogen 1.0 H Urine RBC 3-5 H Urine WBC Urine Glucose Urine Methadone Screen Positive A Urine Fentanyl Screen Ur Amphetamines Screen Positive A Urine Cocaine Screen Positive A Hepatitis C Antibody Reactive A Crossmatch See Detail 09/16/24 09/17/24 09/17/24 22:45 00:50 04:30 WBC 31.89 H* 26.15 H* 25.94 H* RBC 2.52 L 2.13 L 3.23 L Hgb 7.5 L D 6.4 L* 9.7 L D Hct 22.9 L 19.6 L* 28.8 L RDW 14.7 H Plt Count 408 H Absolute Neutrophils 26.50 H 21.97 H 22.70 H Absolute Monocytes 1.69 H 1.57 H 1.04 H Carbon Dioxide 20.2 L Anion Gap 11.8 H Glucose 157 H Calcium 8.2 L Alkaline Phosphatase 182 H Total Protein 5.3 L Albumin 1.7 L Ur Specific [place] >= 1.030 H Urine Protein 100 H Urine Ketones 15 H Urine Blood Large H Urine Nitrite Positive H Urine Bilirubin Small H Urine Urobilinogen Urine RBC >50 H Urine WBC 10-20 H Urine Glucose 100 H Urine Methadone Screen Urine Fentanyl Screen Positive A Ur Amphetamines Screen Urine Cocaine Screen Hepatitis C Antibody Crossmatch 03/29/24 03/29/24 03/30/24 10:53 17:41 06:50 WBC 17.39 H 11.45 H RBC 2.53 L 2.30 L 2.83 L Hgb 7.4 L D 6.9 L* 8.3 L Hct 22.3 L 20.5 L* 25.0 L RDW 15.0 H 15.5 H 15.7 H Plt Count Absolute Neutrophils 13.98 H 8.22 H Absolute Monocytes 1.03 H 0.81 H Carbon Dioxide Anion Gap Glucose Calcium 7.6 L Alkaline Phosphatase 127 H Total Protein 4.6 L Albumin 1.4 L Ur Specific [place] Urine Protein Urine Ketones Urine Blood Urine Nitrite Urine Bilirubin Urine Urobilinogen Urine RBC Urine WBC Urine Glucose Urine Methadone Screen Urine Fentanyl Screen Ur Amphetamines Screen Urine Cocaine Screen Hepatitis C Antibody Crossmatch
[2024-03-31 03:21] VITALS: BP 106/67; PULSE 74; RESP 16; TEMP 37
[2024-03-31] MEDS: Ibuprofen 600 MG TAB PO ×3 (06:23→19:21)
[2024-03-31] MEDS: Acetaminophen 325 MG TAB 650 MG PO (06:24)
[2024-03-31] MEDS: Docusate Sodium 100 MG CAP PO ×2 (06:24→19:46)
[2024-03-31 08:15] VITALS: BP 113/68; PULSE 70; RESP 16; TEMP 36.4; O2SAT 98
[2024-03-31] MEDS: Methadone Liquid 10 MG/ML 70 MG PO (09:55)
--- NOTE | 2024-03-31 10:33 | NUR.NOTE ---
03/29/2024 Per , director quality systems advised Claudette that was not an option d/t active substance abuse and unknown infectious history. Mother agreeable to plan. 03/30/2024 Dr.Johnson ZAMORANO requested nursing start patient pumping. DO and RN discussed concerns from director quality systems and RN. DO reports speaking with [facility] and [facility] and they want patient to start pumping. 03/31/2024 Claudette has continued to pump overnight. RN noted patient was alone and took the opportunity to discuss the positive Hepatitis C result. Patient was surprised and did not know she had this. Pt was concerns about affects on the baby and asked that this information be kept confidential and not shared with her visitors or family, even if they are on the HIIPA form. Nursing Note:
[2024-03-31 12:10] VITALS: BP 114/78; PULSE 78; RESP 16; TEMP 36.6; O2SAT 98
[2024-03-31 13:52] LABS: HCV RNA Qualitative Detected (Undetected)
[2024-03-31 14:54] LABS: Fentanyl Confirmation >40 ng/mL (<2); Norfentanyl Confirmation >200 ng/mL (<10)
[2024-03-31 14:55] LABS: Xylazine, Confirmation Urine 349 ng/mL (<50)
[2024-03-31 16:50] VITALS: BP 111/71; PULSE 81; RESP 16; TEMP 36.5; O2SAT 99
[2024-03-31] MEDS: Normal Saline Flush 10 ML SYR IVP ×2 (19:31)
[2024-03-31 19:53] VITALS: BP 123/72; PULSE 79; RESP 16; TEMP 37.1; O2SAT 99
[2024-03-31 19:59] LABS: Syphilis IgG w/Reflex Nonreactive (Nonreactive)
[2024-03-31 23:38] VITALS: BP 101/47; PULSE 86; TEMP 36.3
[2024-04-01 05:02] VITALS: BP 116/78; PULSE 82; RESP 16; TEMP 36.5
[2024-04-01 08:00] VITALS: BP 103/76; PULSE 75; RESP 12; TEMP 37
[2024-04-01 08:03] LABS: HCT 26.4 % (36.0-46.0); HGB 8.5 g/dL (11.2-15.7); MCH 29.5 pg (27.0-33.0); MCHC 32.2 % (32.0-36.0); MCV 92 fL (80-95); MPV 9.7 fL (8.0-11.0); Platelet Count 224 10^3/uL (130-400); RBC 2.88 10^6/uL (3.93-5.22); RDW 15.3 % (11.7-14.6); RDW-SD 50.6 fL; WBC 8.68 10^3/uL (4.4-10.8)
[2024-04-01] MEDS: Normal Saline Flush 10 ML SYR IVP ×2 (08:33→08:34)
[2024-04-01] MEDS: Methadone Liquid 10 MG/ML 70 MG PO (08:40)
[2024-04-01] MEDS: IRON SUCROSE COMPLEX 200 MG in Normal Saline 100 ML 400 MG IVPB (11:12)
--- NOTE | 2024-04-01 15:53 | OBPPV_ITS ---
Date of service: 04/01/24 Time of Service: 15:53 Assessment and Plan Assessment and plan (1) Status post primary low transverse section: (2) Status post exploratory laparotomy: Assessment and plan: Medically she is now stable and desires discharge. She will f/u at [facility] next week for a post-op visit. We reviewed reasons to call. (3) Substance use disorder: Status: Acute Assessment and plan: She appears to have an appropriate support system in place and should be going to [facility] near [facility] to be close to the baby. She will call Harman MORAN first thing in the am to have an emergency order for her Methadone at the [facility]. If she has any issues or needs assistance she was encouraged to call the Center and we will help her. Subjective Subjective Narrative: Pt is doing increasingly better. She is tolerating oral intake without issues. No n/v. She is passing gas ok though has not had a BM yet. She has been pumping to try to establish a milk supply for the baby and she says her breasts are feeling very engorged right now. She says her lochia has decreased. She strongly prefers discharge tonight so she can see her baby again. She reports that her boyfriend and his family are supportive. They have transportation now. There were just issues last week with their car so she was unable to get to her appt to get her Methadone. Now she says they have multiple back up plans for transportation. She hopes to go to [facility] and has been in touch with them and turned in applications for herself and her boyfriend and it sounds like they will be able to go tonight. She has made contact with DEAN to have emergency doses of Methadone at the [facility] and release forms have been sent. She understands the possibility of even before resuming normal periods and plans abstinence for now but may be interested in a LN-IUD at her pp visit. Exam Physical Exam Vital signs: Temp Pulse Resp BP Pulse Ox 98.6 F 75 12 103/76 99 04/01/24 08:00 04/01/24 08:00 04/01/24 08:00 04/01/24 08:00 03/31/24 19:53 Vital Signs Reviewed: Yes Constitutional Constitutional: no acute distress and cooperative Detailed HEENT Exam Head: Present normocephalic and atraumatic Respiratory Exam Respiratory Exam: Normal Abdominal Exam Abdomen: Tender (mildly) Comments: Dressing in place with outlined areas of old blood that have not expanded beyond the lines. Significant bruising on her left side and down into the mons pubis. Fundal Exam Fundus: Below Umbilicus and Firm Extremities Exam Extremity Exam: negative Calf Tenderness or Edema Detailed Neurological Exam Neurological: Present alert, oriented X3 and CN II-XII intact Results Hemoglobin/Hematocrit: Hgb 8.5 g/dL (11.2-15.7) L 04/01/24 07:55 Hct 26.4 % (36.0-46.0) L 04/01/24 07:55 Abnormal Lab Findings: Abnormal Labs 03/28/24 03/28/24 03/28/24 12:25 12:55 13:30 WBC 11.43 H RBC Hgb Hct RDW Plt Count Absolute Neutrophils Absolute Monocytes Carbon Dioxide Anion Gap 11.7 H Glucose Calcium Alkaline Phosphatase 267 H Total Protein Albumin 2.5 L Ur Specific [place] >= 1.030 H Urine Protein 30 H Urine Ketones >=160 H Urine Blood Small H Urine Nitrite Positive H Urine Bilirubin Small H Urine Urobilinogen 1.0 H Urine RBC 3-5 H Urine WBC Urine Glucose Urine Misc Test Name 349 A Urine Methadone Screen Positive A Urine Fentanyl Screen Ur Fentanyl Confirm Ur Norfentanyl Confirm Ur Amphetamines Screen Positive A Urine Cocaine Screen Positive A Hepatitis C Antibody Reactive A HCV RNA Qual (PCR) Detected A Hepatitis C RNA Quant [id number] H Crossmatch See Detail 03/28/24 03/29/24 03/29/24 22:45 00:50 04:30 WBC 31.89 H* 26.15 H* 25.94 H* RBC 2.52 L 2.13 L 3.23 L Hgb 7.5 L D 6.4 L* 9.7 L D Hct 22.9 L 19.6 L* 28.8 L RDW 14.7 H Plt Count 408 H Absolute Neutrophils 26.50 H 21.97 H 22.70 H Absolute Monocytes 1.69 H 1.57 H 1.04 H Carbon Dioxide 20.2 L Anion Gap 11.8 H Glucose 157 H Calcium 8.2 L Alkaline Phosphatase 182 H Total Protein 5.3 L Albumin 1.7 L Ur Specific [place] >= 1.030 H Urine Protein 100 H Urine Ketones 15 H Urine Blood Large H Urine Nitrite Positive H Urine Bilirubin Small H Urine Urobilinogen Urine RBC >50 H Urine WBC 10-20 H Urine Glucose 100 H Urine Misc Test Name Urine Methadone Screen Urine Fentanyl Screen Positive A Ur Fentanyl Confirm >40 A Ur Norfentanyl Confirm >200 A Ur Amphetamines Screen Urine Cocaine Screen Hepatitis C Antibody HCV RNA Qual (PCR) Hepatitis C RNA Quant Crossmatch 03/29/24 03/29/24 03/30/24 10:53 17:41 06:50 WBC 17.39 H 11.45 H RBC 2.53 L 2.30 L 2.83 L Hgb 7.4 L D 6.9 L* 8.3 L Hct 22.3 L 20.5 L* 25.0 L RDW 15.0 H 15.5 H 15.7 H Plt Count Absolute Neutrophils 13.98 H 8.22 H Absolute Monocytes 1.03 H 0.81 H Carbon Dioxide Anion Gap Glucose Calcium 7.6 L Alkaline Phosphatase 127 H Total Protein 4.6 L Albumin 1.4 L Ur Specific [place] Urine Protein Urine Ketones Urine Blood Urine Nitrite Urine Bilirubin Urine Urobilinogen Urine RBC Urine WBC Urine Glucose Urine Misc Test Name Urine Methadone Screen Urine Fentanyl Screen Ur Fentanyl Confirm Ur Norfentanyl Confirm Ur Amphetamines Screen Urine Cocaine Screen Hepatitis C Antibody HCV RNA Qual (PCR) Hepatitis C RNA Quant Crossmatch 04/01/24 07:55 WBC RBC 2.88 L Hgb 8.5 L Hct 26.4 L RDW 15.3 H Plt Count Absolute Neutrophils Absolute Monocytes Carbon Dioxide Anion Gap Glucose Calcium Alkaline Phosphatase Total Protein Albumin Ur Specific [place] Urine Protein Urine Ketones Urine Blood Urine Nitrite Urine Bilirubin Urine Urobilinogen Urine RBC Urine WBC Urine Glucose Urine Misc Test Name Urine Methadone Screen Urine Fentanyl Screen Ur Fentanyl Confirm Ur Norfentanyl Confirm Ur Amphetamines Screen Urine Cocaine Screen Hepatitis C Antibody HCV RNA Qual (PCR) Hepatitis C RNA Quant Crossmatch 03/28/24 22:45 Urine - Reflex from Ua Urine Culture - Final Gram Negative Yousuf Gram Positive Ela 03/28/24 12:15 Vaginal/Rectal Group B Streptococcus Culture - Final
--- NOTE | 2024-04-01 16:05 | W.PM.OBDISCH ---
Date of service: 04/01/24 Time of Service: 15:00 DS: Diagnosis Discharge Diagnosis (1) Status post primary low transverse section: (2) Status post exploratory laparotomy: (3) Substance use disorder: Status: Acute Discharge Plan Disposition Patient Disposition: Home Condition: Stable Discharge Details Reason For Visit: Labor Admit Date/Time: 03/28/24 11:54 Admit Provider: Selena Garg Attending Provider: Selena Garg Primary Care Provider: Unknown,Unknown Hospital Course Hospital Course: Pt admitted 4 days ago in active labor breech presentation. She admitted to illicit drug use the day prior. She underwent an uncomplicated CS. Around 12hrs after the CS she was found to have hemoperitoneum and underwent explorator laparotomy with finding of some clot and oozing in the left broad ligament. Clots were evacuated and some sutures were placed with no further significant bleeding. She received 2U PRBC during the procedure and 2U later that day with stablization of her H/H. She received a CT scan the following day to r/o ileus and it was normal. She continued to have a routine recovery after that. She did receive an iron transfusion the day of discharge. Her baby was transferred to [facility] day of due to withdrawal sxms. There was no bed available for the pt to be transferred to [facility] as a pt so she was finally discharged on POD#4/3 to go to [facility] near [facility]. She was restarted on her Methadone on POD#1/0 and it will be continued through [facility] and the clinic in [place]. Home Meds and New Rx's Prescriptions: No Action No Known Home Meds Discharge Instructions Stand Alone Forms: BC Discharge Instruc Activity:: Activity as Tolerated Equipment/Supplies:: No Equipment Needed Diet:: As Tolerated Discharge Orders Discharge Orders: Discharge Order (Routine); Ordered 04/01/24 Ordered By: Selena Garg OB:DS Summary Contraception Discussed Contraception Discussed: Yes, Infant Gender-Baby A: Male weight: 7 lb 1.053 oz Status at Discharge Functional status at discharge: independent ambulation Overall status at discharge: patient is back to baseline Mental Status: mental status grossly normal Speech and Movement: speech and movement normal Mood: congruent mood Affect: normal affect Quality:SDOH Health Related Social Needs: No Data to Display Exam Physical Exam Vital signs: Temp Pulse Resp BP Pulse Ox 98.6 F 75 12 103/76 99 04/01/24 08:00 04/01/24 08:00 04/01/24 08:00 04/01/24 08:00 03/31/24 19:53 PFSH All Active Problems Substance use disorder (Acute) Drug of choice is fentanyl and opioids. Was on methadone up until early March. Smoking fentanyl at home. Problem related to housing and economic circumstances (Acute) Medical History (Updated 04/01/24 @ 16:03 by Selena Garg MD) Limited care, antepartum 2 known visits, 1 for ultrasound. Postoperative anemia Surgical History (Updated 04/01/24 @ 16:03 by Selena Garg MD) Status post primary low transverse section Term, breech 03/28/2024 Status post exploratory laparotomy Exploratory laparotomy for hemoperitoneum postop day 1. 03/28/2024 Social History Smoking risk assessment performed?: No History History 2 Para 0 Hx # Term Pregnancies Multiple births Hx # Pregnancies Ectopic pregnancies AB induced Hx Number of Living Children AB spontaneous DS: Data Vitals/I&O Vitals and I&O: Vital Signs Temperature 98.6 F 04/01/24 08:00 Temperature Source Oral 04/01/24 08:00 Pulse 75 04/01/24 08:00 Pulse Rhythm Regular 04/01/24 15:30 Pulse 77 03/29/24 03:41 Respiratory Rate 12 04/01/24 08:00 Respiratory Depth Normal 03/31/24 19:53 Blood Pressure 103/76 04/01/24 08:00 Blood Pressure Mean 85 04/01/24 08:00 Pulse Oximetry 99 03/31/24 19:53 Oxygen Delivery Method Room Air 03/30/24 02:30 Oxygen Flow Rate 0 03/30/24 02:30 Pain Level 3 04/01/24 08:40 Comment Pt is sleeping soundly and VS has been stable over the last 24 hours, RN will check VS when pt awakes. 04/01/24 04:02 Intake & Output 03/31/24 04/01/24 04/01/24 23:59 11:59 23:59 Intake Total 2000 / 3000 Output Total 850 / 1550 Balance 1150 / 1450 Intake: IV 2000 / 3000 Output: Urine 850 / 1550 Other: Urine Color Pale Yellow Data Completed and Pending Labs on day of discharge: Labs from last 24 hours 04/01/24 03/28/24 03/28/24 07:55 22:45 13:30 WBC 8.68 RBC 2.88 L Hgb 8.5 L Hct 26.4 L MCV 92 D MCH 29.5 MCHC 32.2 RDW 15.3 H Plt Count 224 MPV 9.7 Urine Misc Test Name 349 A Ur Fentanyl Confirm >40 A Ur Norfentanyl Confirm >200 A Syphilis IgG Antibody HCV RNA Qual (PCR) Hepatitis C RNA Quant 03/28/24 12:55 WBC RBC Hgb Hct MCV MCH MCHC RDW Plt Count MPV Urine Misc Test Name Ur Fentanyl Confirm Ur Norfentanyl Confirm Syphilis IgG Antibody Nonreactive HCV RNA Qual (PCR) Detected A Hepatitis C RNA Quant [id number] H
[2024-04-03 12:35] LABS: Buprenorphine Negative ng/mL (Cutoff: 5.0)
--- NOTE | 2024-04-08 07:38 | OBPPV_ITS ---
Date of service: 04/08/24 Time of Service: 07:38 Assessment and Plan Assessment and plan (1) Status post primary low transverse section: (2) Status post exploratory laparotomy: Subjective Subjective Interval history: Patient seen and examined. Doing well on her current dose of methadone. Working on transition of the patient to [facility] to be present for her baby. She is pumping without significant difficulty. Exam Physical Exam Vital signs: Temp Pulse Resp BP Pulse Ox 98.6 F 75 12 103/76 99 04/01/24 08:00 04/01/24 08:00 04/01/24 08:00 04/01/24 08:00 03/31/24 19:53 Constitutional Constitutional: no acute distress HEENT Exam HEENT Exam: Normal Respiratory Exam Respiratory Exam: Normal Cardiovascular Exam Cardiovascular Exam: Normal Abdominal Exam Comments: Dressing in place. Shadowing at the right aspect of the incisional dressing, no change. Fundal Exam Fundus: Below Umbilicus and Firm Extremities Exam Extremity Exam: Normal Results Hemoglobin/Hematocrit: Hgb 8.5 g/dL (11.2-15.7) L 04/01/24 07:55 Hct 26.4 % (36.0-46.0) L 04/01/24 07:55 Abnormal Lab Findings: Abnormal Labs 03/28/24 03/28/24 03/28/24 12:25 12:55 13:30 WBC 11.43 H RBC Hgb Hct RDW Plt Count Absolute Neutrophils Absolute Monocytes Carbon Dioxide Anion Gap 11.7 H Glucose Calcium Alkaline Phosphatase 267 H Total Protein Albumin 2.5 L Ur Specific [place] >= 1.030 H Urine Protein 30 H Urine Ketones >=160 H Urine Blood Small H Urine Nitrite Positive H Urine Bilirubin Small H Urine Urobilinogen 1.0 H Urine RBC 3-5 H Urine WBC Urine Glucose Urine Misc Test Name 349 A Urine Methadone Screen Positive A Urine Fentanyl Screen Ur Fentanyl Confirm Ur Norfentanyl Confirm Ur Amphetamines Screen Positive A Urine Cocaine Screen Positive A Hepatitis C Antibody Reactive A HCV RNA Qual (PCR) Detected A Hepatitis C RNA Quant [id number] H Crossmatch See Detail 03/28/24 03/29/24 03/29/24 22:45 00:50 04:30 WBC 31.89 H* 26.15 H* 25.94 H* RBC 2.52 L 2.13 L 3.23 L Hgb 7.5 L D 6.4 L* 9.7 L D Hct 22.9 L 19.6 L* 28.8 L RDW 14.7 H Plt Count 408 H Absolute Neutrophils 26.50 H 21.97 H 22.70 H Absolute Monocytes 1.69 H 1.57 H 1.04 H Carbon Dioxide 20.2 L Anion Gap 11.8 H Glucose 157 H Calcium 8.2 L Alkaline Phosphatase 182 H Total Protein 5.3 L Albumin 1.7 L Ur Specific [place] >= 1.030 H Urine Protein 100 H Urine Ketones 15 H Urine Blood Large H Urine Nitrite Positive H Urine Bilirubin Small H Urine Urobilinogen Urine RBC >50 H Urine WBC 10-20 H Urine Glucose 100 H Urine Misc Test Name Urine Methadone Screen Urine Fentanyl Screen Positive A Ur Fentanyl Confirm >40 A Ur Norfentanyl Confirm >200 A Ur Amphetamines Screen Urine Cocaine Screen Hepatitis C Antibody HCV RNA Qual (PCR) Hepatitis C RNA Quant Crossmatch 03/29/24 03/29/24 03/30/24 10:53 17:41 06:50 WBC 17.39 H 11.45 H RBC 2.53 L 2.30 L 2.83 L Hgb 7.4 L D 6.9 L* 8.3 L Hct 22.3 L 20.5 L* 25.0 L RDW 15.0 H 15.5 H 15.7 H Plt Count Absolute Neutrophils 13.98 H 8.22 H Absolute Monocytes 1.03 H 0.81 H Carbon Dioxide Anion Gap Glucose Calcium 7.6 L Alkaline Phosphatase 127 H Total Protein 4.6 L Albumin 1.4 L Ur Specific [place] Urine Protein Urine Ketones Urine Blood Urine Nitrite Urine Bilirubin Urine Urobilinogen Urine RBC Urine WBC Urine Glucose Urine Misc Test Name Urine Methadone Screen Urine Fentanyl Screen Ur Fentanyl Confirm Ur Norfentanyl Confirm Ur Amphetamines Screen Urine Cocaine Screen Hepatitis C Antibody HCV RNA Qual (PCR) Hepatitis C RNA Quant Crossmatch 04/01/24 07:55 WBC RBC 2.88 L Hgb 8.5 L Hct 26.4 L RDW 15.3 H Plt Count Absolute Neutrophils Absolute Monocytes Carbon Dioxide Anion Gap Glucose Calcium Alkaline Phosphatase Total Protein Albumin Ur Specific [place] Urine Protein Urine Ketones Urine Blood Urine Nitrite Urine Bilirubin Urine Urobilinogen Urine RBC Urine WBC Urine Glucose Urine Misc Test Name Urine Methadone Screen Urine Fentanyl Screen Ur Fentanyl Confirm Ur Norfentanyl Confirm Ur Amphetamines Screen Urine Cocaine Screen Hepatitis C Antibody HCV RNA Qual (PCR) Hepatitis C RNA Quant Crossmatch 03/28/24 22:45 Urine - Reflex from Ua Urine Culture - Final Gram Negative Yousuf Gram Positive Ela 03/28/24 12:15 Vaginal/Rectal Group B Streptococcus Culture - Final
== END 2024-04-01 18:13 | disposition home or self-care (01) | DRG 786 ==
PROVIDERS: Advanced Practice Midwife; Obstetrics & Gynecology; Admitting Provider Obstetrics & Gynecology; Visit Provider Obstetrics & Gynecology
PROC: 10D00Z1 Extraction of Products of Conception, Low, Open Approach (ICD-10-PCS; CPT 59514; principal; 2024-03-28 13:00)
PROC: 0W3J0ZZ Control Bleeding in Pelvic Cavity, Open Approach (ICD-10-PCS; CPT 49000; principal; 2024-03-29 01:45)
DX: O32.1XX0 Maternal care for breech presentation, not applicable or unspecified (principal); K66.1 Hemoperitoneum; F11.93 Opioid use, unspecified with withdrawal; O99.324 Drug use complicating childbirth; O71.7 Obstetric hematoma of pelvis; O72.2 Delayed and secondary postpartum hemorrhage; D62 Acute posthemorrhagic anemia; Z3A.37 37 weeks gestation of pregnancy; Z37.0 Single live birth; O77.0 Labor and delivery complicated by meconium in amniotic fluid; O90.81 Anemia of the puerperium
CPT/HCPCS: 59514; 49000; 36415; 71275; 74177; 76942; 80053; 80307; 80348; 80354; 80375; 84112; 85027; 86787; 86803; 86850; 86900; 86901; 86920; 87340; 87389; 87522; 81003; 81015; 85025; 86762; 86780; 87081; 87086; 88307; J0456; J0665; J0690; J1100; J1170; J1756; J1790; J1885; J2001; J2274; J2371; J2405; J2704; J3010; J3490; P9016

== ENCOUNTER 2025-01-08 08:12 | Observation (INO) | payer MEDICAID, SELFPAY ==
[2025-01-08] VITALS (45 sets, daily range): BP systolic 121–150; BP diastolic 37–96; PULSE 62–105; RESP 0–28; TEMP 36.9–38.4; O2SAT 96–100
--- NOTE | 2025-01-08 08:00 | RT.EKG_ITS ---
APPROVED REPORT Exam: Resting ECG Reason for Exam: Chest Pain Patient Location: E HR:78 bpm ECG Measurements Heart Rate 78 AXIS AL 176 P 88 QRSd 90 QRS 79 QT 396 T 70 QTc 451 Conclusion Sinus rhythm...normal P axis, V-rate 60- 99 Ventricular premature complex...V complex w/ short R-R interval I have reviewed and interpreted ECG and agree with software generated interpretation.
[2025-01-08 08:55] LABS: Abs Immature Grans 0.07 10^3/uL (0.0-0.06); Absolute Basophil Count 0.03 10^3/uL (0.0-0.2); Absolute Lymphocyte Count 1.02 10^3/uL (1.2-3.4); Absolute Neutrophil Count 14.75 10^3/uL (1.2-6.7); Basophils % 0.2 %; HCT 37.6 % (36.0-46.0); HGB 12.4 g/dL (11.2-15.7); Immature Grans % 0.4 %; Lymphocytes % 6.3 %; MCV 88 fL (80-95); Monocytes % 1.9 %; Neutrophils % 91.2 %; Platelet Count 296 10^3/uL (130-400); RBC 4.27 10^6/uL (3.93-5.22); RDW 13.8 % (11.7-14.6); RDW-SD 44.4 fL; WBC 16.17 10^3/uL (4.4-10.8)
[2025-01-08 08:57] LABS: Absolute Monocyte Count 0.31 10^3/uL (0.1-0.8)
[2025-01-08] MEDS: Pantoprazole 40 MG VIAL IVP (09:01)
[2025-01-08] MEDS: Lactated Ringers 1,000 ML 1000 ML IV (09:01)
[2025-01-08] MEDS: Ketorolac 15 MG/ML VIAL IVP (09:02)
[2025-01-08] MEDS: Famotidine 20 MG/2 ML VIAL IVP (09:02)
[2025-01-08] MEDS: Ondansetron 4 MG/2 ML VIAL IVP ×2 (09:02→10:47)
[2025-01-08] MEDS: MYLANTA 30 ML, LIDOCAINE 2% VISCOUS UD 15 ML PO (09:03)
[2025-01-08 09:13] LABS: ALT 16 U/L (14-59); AST 15 U/L (15-37); Albumin 3.8 g/dL (3.4-5.0); Alkaline Phosphatase 100 U/L (46-116); Anion Gap 12.2 mmol/L (3-11); BUN 10 mg/dL (7-18); Bilirubin, Total 0.6 mg/dL (0.2-1.0); CO2 25.8 mmol/L (21.0-32.0); CREATININE 0.4 mg/dL (0.55-1.02); Calcium 8.8 mg/dL (8.5-10.1); Chloride 102 mmol/L (98-107); Estimated GFR 138.17 (mL/min/1.73m2); Glucose 121 mg/dL (74-106); Lipase 21 U/L (<78); Potassium 3.6 mmol/L (3.5-5.1); Sodium 140 mmol/L (136-145); Total Protein 7.7 g/dL (6.4-8.2); Troponin I 7 ng/L (<or=51)
[2025-01-08 09:42] LABS: D-Dimer 389 ng/mlFEU (<500)
--- NOTE | 2025-01-08 10:00 | DI.CT_ITS ---
Exam(s) CT CHEST/ABD/PEL W EXAM: CT CHEST/ABD/PEL W CLINICAL HISTORY: wRetching, rule out Boerhaave's. TECHNIQUE: Imaging Protocol: Axial computed tomography images with coronal and sagittal reformatted images were created and reviewed. Computer aided detection (CAD) was utilized. CONTRAST MATERIAL: Intravenous: Omnipaque 350 Contrast volume:25 ml Oral: no COMPARISON: CT CT ABDOMEN PELVIS W from 03/30/2024 FINDINGS: CHEST: Pulmonary parenchyma: No consolidation. No dominant measurable mass. Tracheobronchial tree: No bronchiectasis. No mucous plugging.No bronchial wall thickening. Pleura: No effusion or pneumothorax. Mediastinum: Within normal limits. No esophageal dilatation or wall thickening. No pneumomediastinum. Pulmonary arteries: No visible emboli. Cardiovascular: No pericardial effusion. Thoracic aorta non-dilated. Bones: Unremarkable for age. No lytic or blastic lesions.No compression fractures. Soft tissues: Unremarkable. ABDOMEN and PELVIS: Liver: Normal density. No suspicious mass. Gallbladder and biliary tract: No evidence of stones or wall thickening. No biliary dilatation. Pancreas: Normal density, no abnormal calcifications or inflammatory process. Spleen: Normal. Kidneys: Normal size, contour and axis. No radiodense stones. No obstructive uropathy. No suspicious masses seen. Adrenal glands: No masses seen. Aorta: Abdominal portion non-dilated. Lymph nodes: Within normal limits. Soft tissues: Unremarkable. Bladder: Unremarkable. Bowel: Evaluation of the bowel is somewhat limited due to lack of oral contrast and lack of intra-abdominal fat. The stomach is not distended. No obstruction or bowel wall thickening. Increased stool noted in the colon consistent with constipation. Peritoneal cavity: No ascites. No focal collection. No mesenteric inflammatory response. No free air. Bones: Unremarkable for age. Reproductive organs: Unremarkable for age. IMPRESSION: No acute abnormality in the chest, abdomen or pelvis. Increased stool, consistent with constipation. The preliminary [facility] report was reviewed. RADIATION DOSE DELIVERED: Total DLP DATA REPOSITORY: All CT scans at this facility are submitted to the National Radiology Data Registry (NRDR) Dose Index Registry (DIR) with the [employer] (A[employer]). RADIATION OPTIMIZATION: All CT scans at this facility use at least one of these dose optimization techniques: automated exposure control; mA and/or kV adjustment per patient size (includes targeted exams where dose is matched to clinical indication); or iterative reconstruction.
[2025-01-08] MEDS: Normal Saline - Diluent 50 ML VIAL IJ (10:23)
[2025-01-08] MEDS: Omnipaque 350 MG/ML 100 ML BTL IJ (10:26)
[2025-01-08 10:39] LABS: Troponin I 9 ng/L (<or=51)
[2025-01-08] MEDS: Metoclopramide 10 MG/2 ML VIAL IVP (10:48)
[2025-01-08] MEDS: PANTOPRAZOLE 80 MG in Normal Saline 100 ML 10 MG IV ×2 (10:48→22:44)
--- NOTE | 2025-01-08 11:21 | DI.VRAD_ITS ---
Addendum created by Curry Ramirez MD on 01/08/2025 11:45:44 AM EDT: THIS REPORT CONTAINS FINDINGS THAT MAY BE CRITICAL TO PATIENT CARE. The findings were verbally communicated via telephone conference with ANALI DIANA at 11:45 AM EDT on 01/08/2025. The findings were acknowledged and understood. Initial report created on 01/08/2025 11:21:01 AM EDT: PROCEDURE INFORMATION: Exam: CT Chest With Contrast; Diagnostic Exam date and time: 01/08/2025 10:25 AM Age: 29 years old Clinical indication: Other: Wretching, rule out boerhaave's TECHNIQUE: Imaging protocol: Diagnostic computed tomography of the chest with contrast. 3D rendering (Not supervised by radiologist): MIP and/or 3D reconstructed images were created by the technologist. Radiation optimization: All CT scans at this facility use at least one of these dose optimization techniques: automated exposure control; mA and/or kV adjustment per patient size (includes targeted exams where dose is matched to clinical indication); or iterative reconstruction. Contrast material: OMNI 350; Contrast volume: 75 ml; Contrast route: INTRAVENOUS (IV); COMPARISON: CT CHEST PE ABD PELVIS W 03/28/2024 11:47 PM FINDINGS: Lungs: Unremarkable. No consolidation. No masses. Pleural spaces: Unremarkable. No pneumothorax. No pleural effusion. Heart: Unremarkable. No cardiomegaly. No pericardial effusion. Mediastinal space: No pneumomediastinum Lymph nodes: Unremarkable. No enlarged lymph nodes. Vasculature: Unremarkable. No aortic aneurysm. Bones/joints: Unremarkable. No acute fracture. Soft tissues: Unremarkable. IMPRESSION: No acute findings. PROCEDURE INFORMATION: Exam: CT Abdomen And Pelvis With Contrast Exam date and time: 01/08/2025 10:25 AM Age: 29 years old Clinical indication: Other: Wretching, rule out boerhaave's TECHNIQUE: Imaging protocol: Computed tomography of the abdomen and pelvis with contrast. 3D rendering (Not supervised by radiologist): MIP and/or 3D reconstructed images were created by the technologist. Radiation optimization: All CT scans at this facility use at least one of these dose optimization techniques: automated exposure control; mA and/or kV adjustment per patient size (includes targeted exams where dose is matched to clinical indication); or iterative reconstruction. Contrast material: OMNI 350; Contrast volume: 75 ml; Contrast route: INTRAVENOUS (IV); COMPARISON: CT ABDOMEN PELVIS W 03/30/2024 8:24 AM FINDINGS: Liver: Normal. No mass. Gallbladder and biliary ducts: Normal. No calcified stones. No ductal dilation. Pancreas: Normal. No ductal dilation. Spleen: Normal. No splenomegaly. Adrenal glands: Normal. No mass. Kidneys and ureters: Normal. No hydronephrosis. Stomach and bowel: Unremarkable. No obstruction. No mucosal thickening. Appendix: No evidence of appendicitis. Intraperitoneal space: Unremarkable. No free air. No significant fluid collection. Vasculature: Unremarkable. No abdominal aortic aneurysm. Lymph nodes: Unremarkable. No enlarged lymph nodes. Urinary bladder: Unremarkable as visualized. Reproductive: Unremarkable as visualized. Bones/joints: Unremarkable. No acute fracture. Soft tissues: Unremarkable. IMPRESSION: No acute findings. Dictated and Authenticated by: Curry Ramirez MD. Orderin Mirta Amador MD
--- NOTE | 2025-01-08 13:01 | ED.GENADUL_ITS ---
Discharge Plan Disposition Patient Disposition: Admit to [facility] Condition: Improving Discharge Details Clinical Impression: Acute upper GI bleed, Nausea & vomiting, Dehydration Primary Care Provider: None,None ED Provider: Perry Kiryb Home Meds and New Rx's Prescriptions: No Action No Known Home Meds HPI General Date/Time Provider Initiated Documentation: 01/08/25 08:17 . HPI Narrative: 29-year-old female with a past medical history of previous , 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 Patient states that for the past week she has been having persistent nausea vomiting which has been wor sening over the last day or so. Last 24 to 48 hours she has also developed left-sided chest pain which is new. She is also noted small amounts of blood in her vomitus. She denies any significant diarrhea, dysuria, trauma, or excessive alcohol use. She denies history of gastric bleeding in the past. No other complaints at this time. No other modifying factors. Related Data Home Medications ?Medication ?Instructions ?Recorded ?Confirmed Unknown [No Known Home Meds] 03/31/24 0 01/08/25 Allergies Allergy/AdvReac Type Severity Reaction Status Date / Time No Known Allergies Allergy Unverified 01/08/25 08:26 General Stated Complaint: Chest/Rib RASHEL: 3 Exam Narrative Exam Narrative: 1.Const: Well-nourished, Well-developed, appearing stated age 2.Eyes: PERRL, no conjunctival injection, and symmetrical lids. 3.ENT: Atraumatic external nose and ears. Notably dry MM. Neck: Symmetric, trachea midline, No thyromegaly. 4.CVS: +S1/S2, Peripheral pulses 2+ and equal in all extremities. Brisk capillary refill in all extremities. No reproducible chest wall tenderness 5.RESP: Unlabored respiratory effort. Clear to auscultation bilaterally. No wheezes rales or rhonchi 6.GI: Soft, nondistended, mild epigastric right upper quadrant left upper quadrant tenderness on palpation. No distention, no guarding or rebound. 7.MSK: Normocephalic/Atraumatic, Extremities w/o deformity or ttp No cyanosis or clubbing, Normal movement of all extremities 8.Skin: Warm, Dry. No rashes or lesions. 9.Neuro: wet end tester II-XII grossly intact. Sensation grossly intact, no focal neurologic deficits. 10.Psych: (AAO) x3. Appropriate mood and affect Course Vital Signs Vital signs: Vital Signs Pulse 78 01/08/25 08:20 Pulse Oximetry 99 01/08/25 08:20 Pulse 72 01/08/25 09:01 Pulse 72 01/08/25 09:01 Respiratory Rate 12 01/08/25 09:01 Respiratory Effort Normal, Non-Labored 01/08/25 08:47 Respiratory Depth Normal 01/08/25 08:47 Respiratory Pattern Normal 01/08/25 08:47 Blood Pressure 130/60 01/08/25 09:01 Blood Pressure Mean 80 01/08/25 09:01 Blood Pressure Position Sitting 01/08/25 08:22 Pulse Oximetry 100 01/08/25 09:01 Oxygen Delivery Method Room Air 01/08/25 08:22 Oxygen Flow Rate 0 01/08/25 08:22 Pain Level 7 01/08/25 09:02 Lab/Test Results Lab/Test Results: Laboratory Tests Range/Units 01/08/25 01/08/25 01/08/25 08:45 08:50 10:00 WBC (4.4-10.8) 10^3/uL 16.17 H RBC (3.93-5.22) 10^6/uL 4.27 Hgb (11.2-15.7) g/dL 12.4 Hct (36.0-46.0) % 37.6 MCV (80-95) fL 88 MCH (27.0-33.0) pg 29.0 MCHC (32.0-36.0) % 33.0 RDW (11.7-14.6) % 13.8 Plt Count (130-400) 10^3/uL 296 MPV (8.0-11.0) fL 10.0 Immature Gran % % 0.4 Neutrophils % % 91.2 Lymphocytes % % 6.3 Monocytes % % 1.9 Eosinophils % % 0.0 Basophils % % 0.2 Nucleated RBC % (0.0-0.3) % 0.0 Absolute Neutrophils (1.2-6.7) 10^3/uL 14.75 H Absolute Lymphocytes (1.2-3.4) 10^3/uL 1.02 L Absolute Monocytes (0.1-0.8) 10^3/uL 0.31 Absolute Eosinophils (0.0-0.7) 10^3/uL 0.00 Absolute Basophils (0.0-0.2) 10^3/uL 0.03 D-Dimer (<500) ng/mlFEU 389 Sodium (136-145) mmol/L 140 Potassium (3.5-5.1) mmol/L 3.6 Chloride (98-107) mmol/L 102 Carbon Dioxide (21.0-32.0) mmol/L 25.8 Anion Gap (3-11) mmol/L 12.2 H BUN (7-18) mg/dL 10 Creatinine (0.55-1.02) mg/dL 0.4 L Est GFR (CKD-EPI 2020) (mL/min/1.73m2) 138.17 Glucose (74-106) mg/dL 121 H Calcium (8.5-10.1) mg/dL 8.8 Total Bilirubin (0.2-1.0) mg/dL 0.6 AST (15-37) U/L 15 ALT (14-59) U/L 16 Alkaline Phosphatase (46-116) U/L 100 Troponin I (<or=51) ng/L 7 9 Total Protein (6.4-8.2) g/dL 7.7 Albumin (3.4-5.0) g/dL 3.8 Lipase (<78) U/L 21 Medical Decision Making 29-year-old female with a past medical history of previous , 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 Patient states that for the past week she has been having persistent nausea vomiting which has been worsening over the last day or so. Last 24 to 48 hours she has also developed left-sided chest pain which is new. She is also noted small amounts of blood in her vomitus. She denies any significant diarrhea, dysuria, trauma, or excessive alcohol use. She denies history of gastric bleeding in the past. No other complaints at this time. No other modifying factors. Physical exam demonstrates epigastric abdominal pain, no reproducible chest pain, dry mucous membranes, vital signs are stable. Concern for gastric ulcer causing bleed, less likely Kandice-Haque tear or Boerhaave's. Will give Protonix and famotidine and GI cocktail, will check hemoglobin status, differential also does include cardiac etiology versus PE causing the chest pain. Pancreatitis and cholecystitis is of concern. Will evaluate for these etiologies, monitor closely and reassess. Patient resources for 2:11 PM Laboratory workup returned with an elevated white count of 16, stable hemoglobin, D-dimer normal, electrolytes normal, creatinine normal, anion gap mildly elevated at 12.2. Serial troponins normal/stable, lipase normal, patient still has not urinated. CT scan shows no acute process however on personal review gallbladder does appear distended, and half of the wall appears thickened versus it being a reflection of collapsed bowel up against the slightly distended gallbladder. However alk phos, transaminases and bilirubin are all normal. Patient does not demonstrate evidence of acute cholecystitis on clinical exam. Patient would benefit from ultrasound. Unfortunately no ultrasound is available at this time. Unfortunately the patient had continued episodes of vomiting and retching, which increased the concern for Boerhaave's. However CT scan shows no evidence of this now. Patient had increased blood noted on her vomiting more than just drinking, large quarter size globules were present. Patient was started on Protonix drip, after multiple dosings of antiemetics the patient eventually stopped the retching. She still has mild epigastric achiness. With the upper GI bleed, and her relatively persistent vomiting, I do feel that she would benefit from admission observation and Protonix infusion. Discussed the case with Dr. Alba, making him aware of the upper GI bleeding component which does seem to be stabilizing, as well as the atypical gallbladder component. He understands. Patient will be admitted to medicine. Discussed the case with Fredo. She agrees with the plan. I have extensively reviewed the treatment plan with the patient. I have addressed all p atient concerns at this time. I have also discussed the plan with the admitting physician and they agree with the current assessment and plan and have agreed to assume responsibility for the patient. All parties demonstrate verbal understanding and agreement with our assessment and plan at this time. The documentation in this chart was dictated using [employer] dictation software. Please excuse any dictation errors. FINDINGS: Lungs: Unremarkable. No consolidation. No masses. Pleural spaces: Unremarkable. No pneumothorax. No pleural effusion. Heart: Unremarkable. No cardiomegaly. No pericardial effusion. Mediastinal space: No pneumomediastinum Lymph nodes: Unremarkable. No enlarged lymph nodes. Vasculature: Unremarkable. No aortic aneurysm. Referral to orthopedics Bones/joints: Unremarkable. No acute fracture. Soft tissues: Unremarkable. IMPRESSION: No acute findings. FINDINGS: Liver: Normal. No mass. Gallbladder and biliary ducts: Normal. No calcified stones. No ductal dilation. Pancreas: Normal. No ductal dilation. Spleen: Normal. No splenomegaly. Adrenal glands: Normal. No mass. Kidneys and ureters: Normal. No hydronephrosis. Stomach and bowel: Unremarkable. No obstruction. No mucosal thickening. Appendix: No evidence of appendicitis. Intraperitoneal space: Unremarkable. No free air. No significant fluid collection. Vasculature: Unremarkable. No abdominal aortic aneurysm. Lymph nodes: Unremarkable. No enlarged lymph nodes. Urinary bladder: Unremarkable as visualized. Reproductive: Unremarkable as visualized. Bones/joints: Unremarkable. No acute fracture. Soft tissues: Unremarkable. IMPRESSION: No acute findings. Thank you for allowing us to participate in the care of your patient. Dictated and Authenticated by: Curry Ramirez MD 01/08/2025 11:21 AM Eastern Time ([place] & [place]) Critical Care Time Critical Care Time Critical Care Time: Yes Total Critical Care Time: 45 Attestation: Upon my evaluation, this patient had a high probability of imminent or life- threatening deterioration, which required my direct attention, intervention, and personal management. I have personally provided 45 minutes of critical care time exclusive of time spent on separately billable procedures. Time includes review of laboratory data, radiology results, discussion with consultants, and monitoring for potential decompensation. Interventions were performed as documented. [facility] All Active Problems Dehydration (Acute) Nausea & vomiting (Acute) Acute upper GI bleed (Acute) Substance use disorder (Acute) Drug of choice is fentanyl and opioids. Was on methadone up until early March. Smoking fentanyl at home. Problem related to housing and economic circumstances (Acute) Medical History (Updated 01/08/25 @ 14:15 by Perry Kirby DO) Postoperative anemia Surgical History (Updated 04/02/24 @ 00:01 by ANEUDY WARE) Status post exploratory laparotomy Exploratory laparotomy for hemoperitoneum postop day 1. 03/28/2024 Status post primary low transverse section Term, breech 03/28/2024 Social History Smoking/Tobacco Use Status: Current every day Tobacco Type: cigarettes Smoking risk assessment performed?: Yes Alcohol Intake: never Drug use: Never Substance use type: does not use History History 2 Para 0 Hx # Term Pregnancies Multiple births Hx # Pregnancies Ectopic pregnancies AB induced Hx Number of Living Children AB spontaneous
--- NOTE | 2025-01-08 13:17 | HPE_ITS ---
Date of service: 01/08/25 Time of Service: 13:17 Assessment and Plan Assessment and plan (1) Acute upper GI bleed: Status: Acute Assessment and plan: Started on pantoprazole drip the emergency department, will continue Case was discussed with general surgery plan likely for outpatient upper endoscopy Follow serial hemoglobin and hematocrit N.p.o. for now Continue IV fluids Hemodynamically she has been stable and hemoglobin hematocrit stable at 12.4 and 37.6 (2) Nausea & vomiting: Status: Acute Assessment and plan: IV fluids and symptom management with antiemetics Denies cannabis use and urine drug screen was negative for THC. Is positive however for cocaine N.p.o. for now will advance diet only as tolerated (3) Substance use disorder: Status: Acute Assessment and plan: Monitor for signs of withdrawal History of Present Illness Narrative: This is a 29-year-old female patient past medical history significant for substance use disorder who presents to the emergency department with a reported 1 week history of intractable nausea and vomiting. Denies any fever or chills denies any sick contacts with similar symptoms. She is reporting that she has been noticing margarito blood in her vomit. She denies any similar previous history. In the emergency department she received IV hydration and antiemetics for her symptoms. This provided little relief and she ended up vomiting her GI cocktail. She was started on a pantoprazole drip. Her case was discussed with general surgery and plan is for upper endoscopy possibly outpatient unless condition changes. Hospitalist services is asked to admit for further management and monitoring. Review of Systems All systems reviewed & are unremarkable except as noted in HPI and below PFSH All Active Problems Dehydration (Acute) Nausea & vomiting (Acute) Acute upper GI bleed (Acute) Substance use disorder (Acute) Drug of choice is fentanyl and opioids. Was on methadone up until early March. Smoking fentanyl at home. Problem related to housing and economic circumstances (Acute) Medical History (Updated 01/08/25 @ 14:38 by ANEUDY WARE) Postoperative anemia Surgical History (Updated 04/02/24 @ 00:01 by ANEUDY WARE) Status post exploratory laparotomy Exploratory laparotomy for hemoperitoneum postop day 1. 03/28/2024 Status post primary low transverse section Term, breech 03/28/2024 Social History Smoking/Tobacco Use Status: Current every day Tobacco Type: cigarettes Smoking risk assessment performed?: Yes Alcohol Intake: never Drug use: Never Substance use type: does not use Housing: apartment History History 2 2 Para 0 Hx # Term Pregnancies Multiple births Hx # Pregnancies Ectopic pregnancies AB induced Hx Number of Living Children AB spontaneous Meds Allergies and Home Medications Allergies Allergy/AdvReac Type Severity Reaction Status Date / Time No Known Allergies Allergy Unverified 01/08/25 08:26 Home Medications ?Medication ?Instructions ?Recorded ?Confirmed ?Type Unknown [No Known Home Meds] 03/31/24 0 01/08/25 History Exam Narrative Exam Narrative: Chronically ill-appearing older than stated age head atraumatic eyes nonicteric noninjected poor dentition. Oral mucosas slightly moist neck full range of motion cardiovascular regular rate and rhythm not tachycardic respirations even and unlabored abdomen is soft nontender moves all extremities equally no peripheral edema neurologic she is awake alert oriented psychiatric blunted mood and affect Results Labs 01/08/25 08:45 01/08/25 08:45 Labs: Laboratory Results - last 24 hr 01/08/25 01/08/25 01/08/25 08:45 08:50 10:00 WBC 16.17 H RBC 4.27 Hgb 12.4 Hct 37.6 MCV 88 MCH 29.0 MCHC 33.0 RDW 13.8 Plt Count 296 MPV 10.0 Immature Gran % 0.4 Neutrophils % 91.2 Lymphocytes % 6.3 Monocytes % 1.9 Eosinophils % 0.0 Basophils % 0.2 Nucleated RBC % 0.0 Absolute Neutrophils 14.75 H Absolute Lymphocytes 1.02 L Absolute Monocytes 0.31 Absolute Eosinophils 0.00 Absolute Basophils 0.03 D-Dimer 389 Sodium 140 Potassium 3.6 Chloride 102 Carbon Dioxide 25.8 Anion Gap 12.2 H BUN 10 Creatinine 0.4 L Est GFR (CKD-EPI 2020) 138.17 Glucose 121 H Calcium 8.8 Total Bilirubin 0.6 AST 15 ALT 16 Alkaline Phosphatase 100 Troponin I 7 9 Total Protein 7.7 Albumin 3.8 Lipase 21 Last Vital Signs Pulse 72 01/08/25 09:01 Resp 12 01/08/25 09:01 BP 130/60 01/08/25 09:01 Pulse Ox 100 01/08/25 09:01 Time Spent Time spent with Patient: 40-54 minutes Time was spent: preparing to see the patient(eg.review tests), obtaining and/or reviewing separately otained hiistory, ordering medications,tests, procedures, indepentently interpreting results and counseling the patient
[2025-01-08 14:09] LABS: Bilirubin Negative (Negative); Blood Negative (Negative); Clarity Clear (Clear); Glucose Negative (Negative); Ketones 15 mg/dL (Negative); Leukocyte Esterase Negative (Negative); Nitrite Negative (Negative); Specific Gravity 1.015 (1.005-1.025); Urobilinogen 0.2 mg/dL (Up to 0.2); pH 5.5 (5-8)
[2025-01-08 14:14] LABS: *AMPHETAMINES SCREEN URINE Negative (Negative); *BARBITURATES SCREEN URINE Negative (Negative); *BENZODIAZEPINES SCREEN URINE Negative (Negative); Cannabinoids THC Negative (Negative); Cocaine Screen,Urine Positive (Negative); METHADONE URINE SCREEN Negative (Negative); OPIATES URINE SCREEN Negative (Negative)
[2025-01-08 14:15] LABS: Tricyclic Antidepressants Negative (Negative)
[2025-01-08 14:20] LABS: Bacteria Moderate HPF (Negative); C & S Indicated? No; Casts Negative LPF (Negative); Crystals Negative HPF (Negative); Epithelial Cells Moderate HPF (Negative); Mucus Negative (Negative); RBC 0-2 HPF (0-2); WBC 0-2 HPF (0-5)
--- NOTE | 2025-01-08 14:59 | W.PC.ACHO ---
Registration Status: ADM TANISHA Primary Language: Preferred Language: ED Information & Data Chief Complaint Chest/Rib 01/08/25 13:01 Triage Note Pt reports a few weeks of 01/08/25 08:22 pain in her left chest, producing blood tinged vomit , pain with breathing, changes in her vision when the pain occurs Medical / Surgical History (Last Updated 04/01/24 @ 16:03 by Selena Garg MD) Postoperative anemia (Last Updated 04/01/24 @ 16:03 by Selena Garg MD) Status post exploratory laparotomy Status post primary low transverse section Most Recent Vital Signs Temperature 36.9 C 01/08/25 13:10 Pulse 88 01/08/25 13:20 Pulse 89 01/08/25 13:20 Respiratory Rate 14 01/08/25 13:20 Respiratory Effort Normal, Non-Labored 01/08/25 08:47 Respiratory Depth Normal 01/08/25 08:47 Respiratory Pattern Normal 01/08/25 08:47 Blood Pressure 126/37 L 01/08/25 13:19 Blood Pressure Mean 65 01/08/25 13:19 Blood Pressure Position Sitting 01/08/25 08:22 Pulse Oximetry 96 01/08/25 13:20 Oxygen Delivery Method Room Air 01/08/25 08:22 Oxygen Flow Rate 0 01/08/25 08:22 Pain Level 8 01/08/25 14:31 Allergies No Known Allergies Allergy (Unverified 01/08/25 08:26) Precautions Isolation Standard precaution 01/08/25 08:26 Active Medications Generic Name Dose Route Start Last Admin Trade Name Freq PRN Reason Stop Dose Admin Pantoprazole Sodium 80 mg/ 100 mls @ 10 mls/hr 01/08/25 10:15 01/08/25 10:48 Sodium Chloride IV 10 mls/hr INFUSION REKHA Administration Sodium Chloride 50 ml 01/08/25 10:30 01/08/25 10:23 Normal Saline - Diluent 50 Ml Vial IJ 50 ml .FOR DI USE REKHA Administration IV IV Catheter Type [Left Forearm Peripheral IV ] IV Catheter Gauge [Left 20 Forearm] Diet Orders Category Date Time Status Nothing Per Oral [DIET] Nutrition 01/08/25 14:52 Active Diagnostics 01/08/25 01/08/25 01/08/25 Range/Units 18:00 13:29 11:26 WBC (4.4-10.8) 10^3/uL RBC (3.93-5.22) 10^6/uL Hgb Pending (11.2-15.7) g/dL Hct Pending (36.0-46.0) % MCV (80-95) fL MCH (27.0-33.0) pg MCHC (32.0-36.0) % RDW (11.7-14.6) % Plt Count (130-400) 10^3/uL MPV (8.0-11.0) fL Immature Gran % % Neutrophils % % Lymphocytes % % Monocytes % % Eosinophils % % Basophils % % Nucleated RBC % (0.0-0.3) % Absolute Neutrophils (1.2-6.7) 10^3/uL Absolute Lymphocytes (1.2-3.4) 10^3/uL Absolute Monocytes (0.1-0.8) 10^3/uL Absolute Eosinophils (0.0-0.7) 10^3/uL Absolute Basophils (0.0-0.2) 10^3/uL D-Dimer (<500) ng/mlFEU Sodium (136-145) mmol/L Potassium (3.5-5.1) mmol/L Chloride (98-107) mmol/L Carbon Dioxide (21.0-32.0) mmol/L Anion Gap (3-11) mmol/L BUN (7-18) mg/dL Creatinine (0.55-1.02) mg/dL Est GFR (CKD-EPI 2020) (mL/min/1.73m2) Glucose (74-106) mg/dL Calcium (8.5-10.1) mg/dL Total Bilirubin (0.2-1.0) mg/dL AST (15-37) U/L ALT (14-59) U/L Alkaline Phosphatase (46-116) U/L Troponin I Cancelled (<or=51) ng/L Total Protein (6.4-8.2) g/dL Albumin (3.4-5.0) g/dL Lipase (<78) U/L Urine Color Yellow (Yellow) Urine Clarity Clear (Clear) Urine pH 5.5 (5-8) Ur Specific Monson 1.015 (1.005-1.025) Urine Protein 30 H (Neg-Trace) mg/dL Urine Ketones 15 H (Negative) mg/dL Urine Blood Negative (Negative) Urine Nitrite Negative (Negative) Urine Bilirubin Negative (Negative) Urine Urobilinogen 0.2 (Up to 0.2) mg/dL Ur Leukocyte Esterase Negative (Negative) Urine RBC 0-2 (0-2) HPF Urine WBC 0-2 (0-5) HPF Ur Epithelial Cells Moderate (Negative) HPF Urine Crystals Negative (Negative) HPF Urine Bacteria Moderate (Negative) HPF Urine Casts Negative (Negative) LPF Urine Mucus Negative (Negative) Ur Culture Indicated? No Urine Glucose Negative (Negative) mg/dL Urine Opiates Screen Negative (Negative) Urine Methadone Screen Negative (Negative) Ur Barbiturates Screen Negative (Negative) Ur Tricyclics Screen Negative (Negative) Ur Amphetamines Screen Negative (Negative) U Benzodiazepines Scrn Negative (Negative) Urine Cocaine Screen Positive A (Negative) Ur THC Screen Negative (Negative) 01/08/25 01/08/25 01/08/25 Range/Units 10:00 08:50 08:45 WBC 16.17 H (4.4-10.8) 10^3/uL RBC 4.27 (3.93-5.22) 10^6/uL Hgb 12.4 (11.2-15.7) g/dL Hct 37.6 (36.0-46.0) % MCV 88 (80-95) fL MCH 29.0 (27.0-33.0) pg MCHC 33.0 (32.0-36.0) % RDW 13.8 (11.7-14.6) % Plt Count 296 (130-400) 10^3/uL MPV 10.0 (8.0-11.0) fL Immature Gran % 0.4 % Neutrophils % 91.2 % Lymphocytes % 6.3 % Monocytes % 1.9 % Eosinophils % 0.0 % Basophils % 0.2 % Nucleated RBC % 0.0 (0.0-0.3) % Absolute Neutrophils 14.75 H (1.2-6.7) 10^3/uL Absolute Lymphocytes 1.02 L (1.2-3.4) 10^3/uL Absolute Monocytes 0.31 (0.1-0.8) 10^3/uL Absolute Eosinophils 0.00 (0.0-0.7) 10^3/uL Absolute Basophils 0.03 (0.0-0.2) 10^3/uL D-Dimer 389 (<500) ng/mlFEU Sodium 140 (136-145) mmol/L Potassium 3.6 (3.5-5.1) mmol/L Chloride 102 (98-107) mmol/L Carbon Dioxide 25.8 (21.0-32.0) mmol/L Anion Gap 12.2 H (3-11) mmol/L BUN 10 (7-18) mg/dL Creatinine 0.4 L (0.55-1.02) mg/dL Est GFR (CKD-EPI 2020) 138.17 (mL/min/1.73m2) Glucose 121 H (74-106) mg/dL Calcium 8.8 (8.5-10.1) mg/dL Total Bilirubin 0.6 (0.2-1.0) mg/dL AST 15 (15-37) U/L ALT 16 (14-59) U/L Alkaline Phosphatase 100 (46-116) U/L Troponin I 9 7 (<or=51) ng/L Total Protein 7.7 (6.4-8.2) g/dL Albumin 3.8 (3.4-5.0) g/dL Lipase 21 (<78) U/L Urine Color (Yellow) Urine Clarity (Clear) Urine pH (5-8) Ur Specific Monson (1.005-1.025) Urine Protein (Neg-Trace) mg/dL Urine Ketones (Negative) mg/dL Urine Blood (Negative) Urine Nitrite (Negative) Urine Bilirubin (Negative) Urine Urobilinogen (Up to 0.2) mg/dL Ur Leukocyte Esterase (Negative) Urine RBC (0-2) HPF Urine WBC (0-5) HPF Ur Epithelial Cells (Negative) HPF Urine Crystals (Negative) HPF Urine Bacteria (Negative) HPF Urine Casts (Negative) LPF Urine Mucus (Negative) Ur Culture Indicated? Urine Glucose (Negative) mg/dL Urine Opiates Screen (Negative) Urine Methadone Screen (Negative) Ur Barbiturates Screen (Negative) Ur Tricyclics Screen (Negative) Ur Amphetamines Screen (Negative) U Benzodiazepines Scrn (Negative) Urine Cocaine Screen (Negative) Ur THC Screen (Negative) Intake and Output - 24 Hour Total 01/08/25 08:12 thru 01/08/25 08:22 Weight 54.4 kg Falls Risk Assessment History of Falls No History 01/08/25 08:47 Contributing Factors No Factors 01/08/25 08:47 Ambulatory Aids Independent 01/08/25 08:47 Tubes/Lines None 01/08/25 08:47 Gait Evaluation No gait disturbance 01/08/25 08:47 Cognition No cognitive impairment 01/08/25 08:47 Fall Total Score 0 01/08/25 08:47 Level of Risk Standard/Low Risk 01/08/25 08:47 v v v v v v v v v Sending and/or Receiving Nurses: Please use comment section below to note any information pertinent to the patient hand-off not included above. Information / Comments Pt came to ED for intractable vomiting. Being admitted for possible uppe GI bleed. Pt arrived to floor via wheel chair accompanied by ED RESEARCH FELLOW. Pt was settled into bed, oriented to room and call dior was placed within reach. Report received from: Lissette, ED RN
--- NOTE | 2025-01-08 15:15 | RT.EKG_ITS ---
APPROVED REPORT Exam: Resting ECG Reason for Exam: provider ordered Patient Location: I HR:78 bpm ECG Measurements Heart Rate 78 AXIS SC 190 P 84 QRSd 89 QRS 82 QT 448 T 72 QTc 511 Conclusion Sinus rhythm...normal P axis, V-rate 50- 99 Normal Electrocardiogram
[2025-01-08] MEDS: POTASSIUM CHLORIDE/D5-0.45NACL 1,000 ML 100 MEQ IV (16:45)
[2025-01-08] MEDS: diphenhydrAMINE 50 MG/ML VIAL 25 MG IVP (18:15)
[2025-01-08 18:26] LABS: HCT 38.3 % (36.0-46.0); HGB 12.4 g/dL (11.2-15.7)
[2025-01-08] MEDS: Droperidol 5 MG/2 ML VIAL 1.25 MG IVP (20:09)
[2025-01-08] MEDS: Normal Saline Flush 10 ML SYR IVP (20:10)
--- NOTE | 2025-01-08 20:26 | NUR.NOTE ---
Nursing Note: Pt is now vomiting and has spiked a new temp of 38.4. Pt endorses not eating for 3 days. can we get an order for antiemetic, tylenol? Provider has ordered blood cultures, urine cultures, mag level, tylenol 1000mg IVPB Q6H PRN, pending order for zofran 4mg IVP Q6H PRN if droperidol is ineffective.
[2025-01-08 20:31] LABS: Lab Add On Test DONE
[2025-01-08 20:39] LABS: Magnesium 1.5 mg/dL (1.8-2.4)
[2025-01-08] MEDS: ACETAMINOPHEN 1,000 MG/100 ML BAG 400 MG IVPB (20:43)
[2025-01-08] MEDS: MAGNESIUM SULFATE 2 GM/50 ML BAG IV_INF (23:04)
[2025-01-09] MEDS: POTASSIUM CHLORIDE/D5-0.45NACL 1,000 ML 100 MEQ IV (02:40)
[2025-01-09] MEDS: Droperidol 5 MG/2 ML VIAL 1.25 MG IVP (05:46)
--- NOTE | 2025-01-09 06:45 | RT.EKG_ITS ---
APPROVED REPORT Exam: Resting ECG Reason for Exam: hr >200 Patient Location: I HR:112 bpm ECG Measurements Heart Rate 112 AXIS LA 119 P 0 QRSd 89 QRS 76 QT 319 T 56 QTc 436 Conclusion Sinus tachycardia...rate> 99 Artifact in lead(s) I,III,aVR,aVL,aVF,V2 and baseline wander in lead(s) II,aVR Otherwise normal ECG
[2025-01-09 06:58] LABS: Abs Immature Grans 0.08 10^3/uL (0.0-0.06); Absolute Basophil Count 0.03 10^3/uL (0.0-0.2); Absolute Lymphocyte Count 2.01 10^3/uL (1.2-3.4); Absolute Monocyte Count 0.58 10^3/uL (0.1-0.8); Basophils % 0.2 %; HCT 42.3 % (36.0-46.0); HGB 13.8 g/dL (11.2-15.7); Immature Grans % 0.5 %; Lymphocytes % 12.8 %; MCH 29.1 pg (27.0-33.0); MCHC 32.6 % (32.0-36.0); MCV 89 fL (80-95); Monocytes % 3.7 %; Neutrophils % 82.8 %; Platelet Count 319 10^3/uL (130-400); RBC 4.75 10^6/uL (3.93-5.22); RDW 14.1 % (11.7-14.6); RDW-SD 45.3 fL
[2025-01-09 07:06] VITALS: PULSE 151; RESP 25; TEMP 36.1; O2SAT 98
[2025-01-09] MEDS: LORazepam 20 MG/10 ML VIAL IVP (07:15)
[2025-01-09 07:24] LABS: Anion Gap 11.8 mmol/L (3-11); BUN 6 mg/dL (7-18); CO2 27.2 mmol/L (21.0-32.0); CREATININE 0.5 mg/dL (0.55-1.02); Chloride 103 mmol/L (98-107); Estimated GFR 130.94 (mL/min/1.73m2); Glucose 130 mg/dL (74-106); Potassium 3.8 mmol/L (3.5-5.1); Sodium 142 mmol/L (136-145)
[2025-01-09 07:44] LABS: Magnesium 2.2 mg/dL (1.8-2.4)
[2025-01-09] MEDS: Normal Saline Flush 10 ML SYR IVP (08:53)
--- NOTE | 2025-01-09 14:57 | DSE_ITS ---
Date of service: 01/09/25 Time of Service: 11:25 DS: Diagnosis Discharge Diagnosis (1) Nausea & vomiting: Status: Acute (2) Substance use disorder: Status: Acute Discharge Plan Disposition Patient Disposition: Against Medical Advice Condition: Poor Discharge Details Reason For Visit: Intractable Nausea and vomiting Admit Date/Time: 01/08/25 13:24 Admit Provider: José Chen Attending Provider: José Chen Primary Care Provider: None,None Hospital Course Hospital Course: Reason for Admission: * Intractable nausea and vomiting with reported hematemesis * Concerns for upper gastrointestinal bleeding. Hospital Course: 1. Acute Upper Gastrointestinal Bleed * Status: Acute * Assessment/Plan: * Initiated on pantoprazole drip in the emergency department. * General surgery consulted; upper endoscopy planned for outpatient follow-up unless symptoms worsen. * Hemoglobin and hematocrit remained stable at 12.4 and 37.6 respectively 01/08 - 13.8 and 42.3 / 01/09 * Patient remained hemodynamically stable. * Patient kept NPO and maintained on IV fluids. 2. Nausea and Vomiting * Status: Acute * Assessment/Plan: * Treated with IV fluids and antiemetics. * Patient reported 1-week history of intractable nausea and vomiting. * No cannabis use reported; urine drug screen negative for THC, positive for cocaine. * Continued NPO status; diet to be advanced as tolerated if symptoms improved. 3. Substance Use Disorder * Status: Acute * Assessment/Plan: * History of fentanyl use; was on methadone until early March. * Currently smokes fentanyl. * Positive urine drug screen for cocaine. * Needle ruiz noted to both arms * Monitored for signs of opioid withdrawal during admission. History of Present Illness: 29-year-old female with a known history of opioid use disorder (fentanyl) presented with one week of intractable nausea, vomiting, and recent hematemesis. No recent sick contacts, fever, or chills. Reported smoking fentanyl. She received IV fluids and antiemetics in the ED with limited symptom relief. Vomit ed after receiving a GI cocktail. Started on pantoprazole drip and admitted for further monitoring and management. Pertinent Medical History: * Substance use disorder (opioids, fentanyl) * Dehydration * Nausea & vomiting * Acute upper GI bleed * History of postoperative anemia * Housing instability Surgical History: * Exploratory laparotomy for hemoperitoneum (03/28/2024) * Primary low transverse section (Term breech, 03/28/2024) Social History: * Tobacco Use: Current daily smoker (cigarettes) * Alcohol Use: Denied * Drug Use: Actively smokes fentanyl; positive for cocaine * Housing: Resides in an apartment; history of housing/economic instability Discharge Condition: * Patient elected to leave the hospital against medical advice (AMA). * Hemodynamically stable at time of discharge. * No acute distress noted. Discharge Instructions: * Return to ED immediately for recurrent vomiting, hematemesis, dizziness, lightheadedness, or worsening abdominal pain. * Follow up with PCP or addiction medicine specialist for substance use disorder treatment options. * Outpatient endoscopy as previously discussed, if agreeable. * Resume diet as tolerated. * Continue PPI therapy if able to obtain. AMA Discharge ? Risk Discussion:Patient elected to leave the hospital AMA. Risks of premature discharge were discussed, including: * Worsening GI bleed and potential for hemorrhage * Persistent nausea/vomiting with risk of dehydration * Untreated substance use disorder and risk of withdrawal or overdose * Delay in diagnostic workup (pending endoscopy) * Possible need for rehospitalization * Patient demonstrated decision-making capacity and verbalized understanding of the above risks. Advised to return to ED for worsening symptoms. Discharge instructions provided. Home Meds and New Rx's Prescriptions: No Action No Known Home Meds Discharge Instructions Instructions: Nausea and vomiting in adults Additional Instructions: 1. When to Seek Emergency Care Immediately: Go to the nearest emergency room or call 911 if you experience any of the following: * Vomiting blood or material that looks like coffee grounds * Black, tarry, or bloody stools * Severe abdominal pain * Dizziness, fainting, or feeling lightheaded * Inability to keep down food or fluids for more than 24 hours * Fever or chills * Signs of withdrawal (sweating, agitation, tremors, hallucinations) 2. Medications: * If previously prescribed pantoprazole (proton pump inhibitor), continue as directed if available. * Use anti-nausea medications (e.g., ondansetron) if prescribed and tolerated. * Avoid all drug and alcohol use. These can worsen your condition and increase the risk of serious bleeding or overdose. 3. Diet: * Start with clear liquids (water, broth, juice, electrolyte drinks). * Slowly advance to bland foods (toast, rice, bananas, applesauce) as tolerated. * Avoid spicy, acidic, or greasy foods until fully recovered. * Remain hydrated?sip fluids frequently. 4. Follow-Up Care: * Primary Care Provider: Within 1 week, or sooner if condition worsens. * Media Reconciliation Specialist: For outpatient upper endoscopy to evaluate cause of bleeding. * Addiction Services: Strongly encouraged to seek support for opioid and cocaine use. Patient Acknowledgement: You have been informed of the risks of leaving the hospital early and understand the importance of follow-up and monitoring. If you change your mind or your symptoms worsen, you can return to the hospital at any time. Recommend establishing care with a provider as soon as possible. Activity:: Activity as Tolerated Diet:: As Tolerated Discharge Orders Discharge Orders: Discharge Order (Routine); Ordered 01/09/25 Ordered By: Lida Lewis Discharge Data Discharge Date/Time-TO BE ENTERED AT DEPARTURE: 01/09/25 11:23 DS: Summary Time Spent with Patient providing and/or coordinating discharge services: Greater than 30 minutes Status at Discharge Functional status at discharge: independent ambulation Overall status at discharge: patient is not back to baseline Mental Status: mental status grossly normal (Has capacity; repeated everything I said to her correctly 2 sep occasions) Speech and Movement: agitated, pressured speech and restless Mood: irritable mood Affect: labile affect Exam Narrative Exam Narrative: HEENT: Dry mucous membranes. No scleral icterus. Pupils equal and reactive. Bad dentition. No signs of trauma. Cardiovascular: Tachycardic. Regular rhythm. No murmurs. Cap refill <2 seconds. Respiratory: Clear to auscultation bilaterally. No signs of respiratory distress. GI/Abdomen: Soft, mildly tender in the epigastric region. No rebound or guarding. No distension. Normal bowel sounds. No palpable masses. No signs of peritonitis. Skin: Dry skin, no jaundice, no petechiae or purpura. No active bleeding noted. What appears to be needle ruiz on both upper extremeties Neuro: Alert and oriented ?3. No focal deficits. No tremors or asterixis. Psychiatric: Appropriate affect. Insight and judgment impaired in context of active substance use. No hallucinations or delusions observed at this time. Psych Mental Status: mental status grossly normal (Has capacity; repeated everything I said to her correctly 2 sep occasions) Speech and Movement: agitated, pressured speech and restless Mood: irritable mood Affect: labile affect DS: Data Vitals/I&O Vitals and I&O: Vital Signs Temperature 36.1 C L 01/09/25 07:06 Temperature Source Tympanic 01/08/25 21:32 Pulse 151 H 01/09/25 07:06 Pulse Rhythm Regular 01/08/25 16:07 Pulse 89 01/08/25 13:20 Respiratory Rate 25 H 01/09/25 07:06 Respiratory Effort Short of Breath, Labored 01/09/25 07:06 Respiratory Depth Normal 01/08/25 16:07 Respiratory Pattern Normal 01/08/25 16:07 Blood Pressure 142/76 H 01/08/25 19:55 Blood Pressure Mean 98 01/08/25 19:55 Blood Pressure Position Sitting 01/08/25 08:22 Pulse Oximetry 98 01/09/25 07:06 Oxygen Delivery Method Room Air 01/09/25 07:06 Oxygen Flow Rate 0 01/09/25 07:06 Pain Level 5 01/08/25 19:55 Comment IV tylenol administered, fever improved 01/08/25 21:32 Intake & Output 01/08/25 01/09/25 01/09/25 23:59 11:59 23:59 Intake Total 1215.833 / 2205.057 1390 / 1050 Balance 1215.833 / 0210.977 4839 / 1050 Weight 54.4 kg Intake: IV 1215.833 / 6857.078 1667 / 1050 Other: Urine Appearance Clear Comment pt had episode of incontinence on bed- unable to measure Data Completed and Pending Labs on day of discharge: Labs from last 24 hours 01/09/25 01/08/25 01/08/25 06:33 20:22 18:15 WBC 15.70 H RBC 4.75 Hgb 13.8 12.4 Hct 42.3 38.3 MCV 89 MCH 29.1 MCHC 32.6 RDW 14.1 Plt Count 319 MPV 10.0 Immature Gran % 0.5 Neutrophils % 82.8 Lymphocytes % 12.8 Monocytes % 3.7 Eosinophils % 0.0 Basophils % 0.2 Nucleated RBC % 0.0 Absolute Neutrophils 13.00 H Absolute Lymphocytes 2.01 Absolute Monocytes 0.58 Absolute Eosinophils 0.00 Absolute Basophils 0.03 Sodium 142 Potassium 3.8 Chloride 103 Carbon Dioxide 27.2 Anion Gap 11.8 H BUN 6 L Creatinine 0.5 L Est GFR (CKD-EPI 2020) 130.94 Glucose 130 H Calcium 9.0 Magnesium 2.2 Add-On Test Request DONE 01/08/25 08:15 WBC RBC Hgb Hct MCV MCH MCHC RDW Plt Count MPV Immature Gran % Neutrophils % Lymphocytes % Monocytes % Eosinophils % Basophils % Nucleated RBC % Absolute Neutrophils Absolute Lymphocytes Absolute Monocytes Absolute Eosinophils Absolute Basophils Sodium Potassium Chloride Carbon Dioxide Anion Gap BUN Creatinine Est GFR (CKD-EPI 2020) Glucose Calcium Magnesium 1.5 L Add-On Test Request 01/08/25 13:29 Urine - Clean Catch Urine Culture - Pending 01/08/25 21:12 Blood Blood Culture - Pending 01/08/25 20:33 Blood Blood Culture - Pending Preliminary micro results at discharge 01/08/25 13:29 Urine - Clean Catch Urine Culture - Pending 01/08/25 21:12 Blood Blood Culture - Pending 01/08/25 20:33 Blood Blood Culture - Pending PFSH All Active Problems Dehydration (Acute) Nausea & vomiting (Acute) Acute upper GI bleed (Acute) Substance use disorder (Acute) Drug of choice is fentanyl and opioids. Was on methadone up until early March. Smoking fentanyl at home. Problem related to housing and economic circumstances (Acute) Medical History (Updated 01/08/25 @ 14:38 by ANEUDY WARE) Postoperative anemia Surgical History (Updated 04/02/24 @ 00:01 by Object MatrixZeina WARE) Status post exploratory laparotomy Exploratory laparotomy for hemoperitoneum postop day 1. 03/28/2024 Status post primary low transverse section Term, breech 03/28/2024 Social History Smoking/Tobacco Use Status: Current every day Tobacco Type: cigarettes Smoking risk assessment performed?: Yes Alcohol Intake: never Drug use: Never Substance use type: does not use Housing: apartment History History 2 Para 0 Hx # Term Pregnancies Multiple births Hx # Pregnancies Ectopic pregnancies AB induced Hx Number of Living Children AB spontaneous Time Spent with Patient Time Spent with Patient: 45-69 minutes Time was spent: preparing to see the patient(eg.review tests), indepentently interpreting results, counseling the patient and care coordination
== END 2025-01-09 11:23 | disposition left against medical advice (07) ==
LOC: ER 14:15 → MS 14:38
PROVIDERS: Family Medicine; Nurse Practitioner Acute Care; Admitting Provider Family Medicine; Emergency Provider Student in an Organized Health Care Education/Training Program; Responsible Provider Nurse Practitioner Family; Visit Provider Family Medicine
DX: K92.0 Hematemesis (principal); F11.90 Opioid use, unspecified, uncomplicated; E86.0 Dehydration; Z59.89 Other problems related to housing and economic circumstances; F17.210 Nicotine dependence, cigarettes, uncomplicated
CPT/HCPCS: 00123; 36415; 74177; 80048; 80053; 80307; 83690; 87040; 87077; 93005; 96361; 96365; 96366; 96367; 96374; 96375; 96376; 99291; 71260; 81003; 81015; 83735; 84484; 85014; 85018; 85025; 85379; 87086; 87186; 93010; 99223; 99239; G0378; J0131; J1200; J1790; J1885; J2060; J2405; J2470; J2765; J3475; J3490